=== PATIENT | male | born 1950 | race Caucasian/White ===

== ENCOUNTER → 2020-05-17 12:18 | Outpatient (CLI) | payer MEDICARE, OTHER, SELFPAY ==
--- NOTE | 2020-05-17 | DI.MRI.S_ITS ---
PROCEDURE: MR KNEE RT WO CON INDICATIONS: PAIN IN RIGHT KNEE TECHNIQUE: Noncontrast sagittal PD fast spin echo and T2 fast spin echo with fat saturation, sagittal 3-D FLASH with fat saturation; coronal T1 spin echo and PD fast spin echo with fat saturation, and axial PD fast spin echo with fat saturation through the knee. COMPARISON: None. FINDINGS: Image quality: Excellent. Menisci: Amorphous and linear oblique high T2 signal intensity traverses the anterior horn, body, and posterior horn medial meniscus, demonstrating inferior articular surface extension. There is detachment of the posterior horn lateral meniscus. Linear oblique and amorphous high signal intensity within the anterior horn, body, and posterior horn lateral meniscus is present, demonstrating inferior and superior articular surface extension, indicating complex tearing. Cruciate ligaments: The anterior and posterior cruciate ligaments appear intact. Medial structures: The medial collateral ligament appears intact. Visualized portions of the pes anserinus tendons appear normal. Small amount of medial bursal fluid. Lateral structures: The lateral collateral ligament demonstrates mild T2 signal elevation at the femoral origin. The long and short heads of the biceps femoris tendon appear intact. The popliteus tendon appears normal. Iliotibial band appears normal. Anterior structures: The quadriceps and patellar tendons appear intact. Patellar alignment is normal. No femoral trochlear dysplasia or ventral trochlear prominence. No edema in the infrapatellar fat pad. Bones and cartilage: No bone marrow contusions or fractures. There is mild ill-defined STIR signal elevation within the posterior nonweightbearing aspect of the lateral femoral condyle and within the anterior weight-bearing aspect of the lateral tibial plateau. Severe articular cartilage loss diffusely overlies the weight-bearing aspects of the medial and lateral compartments. Articular cartilage fibrillation overlies the lateral patellar facet. Joint space: There is a small knee joint effusion and a moderate Byers's cyst. Normal appearing synovial plicae are incidentally noted. IMPRESSION: 1. Tricompartmental osteoarthritis with associated articular cartilage loss. 2. Complex tearing of the medial and lateral menisci. 3. Partial-thickness tearing of the lateral collateral ligament. 4. Knee joint effusion and Byers's cyst. 5. Medial bursitis. Dictated by: Lon Cabrera M.D. on 05/17/2020 at 15:00 Approved by: Lon Cabrera M.D. on 05/17/2020 at 15:05
--- NOTE | 2020-05-17 12:20 | DI.MRI.S_ITS ---
PROCEDURE: MR LUMBAR SPINE WO CON INDICATIONS: LE paresthesias TECHNIQUE: Noncontrast sagittal T1 spin echo and T2 fast echo, sagittal STIR, axial T1 and T2 fast spin echo through the lumbar spine. In cases with scoliosis, additional coronal T2 fast spin echo may be performed. COMPARISON: [facility], RG, XR L-SPINE 2-3V, 01/15/2018, 15:12. FINDINGS: Image quality: Excellent. Alignment and Curvature: S-shaped scoliotic curvature is seen. There is minimal retrolisthesis seen at L2-3. Bone Marrow: Marrow is of normal overall signal. No acute vertebral body compression fractures. Spinal Cord: Conus medullaris terminates at the T12-L1 level. Visualized cord demonstrates normal signal and size. Paraspinous Soft Tissues: No paravertebral masses. T12-L1: The disc height and disk signal are well-preserved. Mild disc bulge is seen, which is eccentric to the right. Bridging endplate osteophytes are seen. No significant neural foraminal or central canal narrowing can be seen. L1-L2: The disc height and disk signal are well-preserved. Bridging endplate osteophytes are seen. Moderate right-sided and [id number] left-sided facet hypertrophy is seen. Minimal to mild bilateral neural foraminal narrowing is seen. Mild central canal narrowing is seen. L2-L3: Mild loss of disc height is seen. Loss of disc signal is seen. At least moderate disc bulge is seen. Bridging endplate osteophytes are seen. Moderate facet joint hypertrophy is seen. At least moderate bilateral neural foraminal narrowing is seen. There is a degree of compression seen upon the exiting nerve roots. Moderate to severe central canal narrowing is seen, as on series 6, image 15. L3-L4: The disc height is well-preserved. Loss of disc signal is seen at this level. At least moderate disc osteophyte complex is seen. Moderate facet joint hypertrophy is seen. Associated hypertrophy of the ligamentum flavum can be seen. Moderate to severe bilateral neural foraminal narrowing is seen, right worse than left. There is a degree of compression seen upon the exiting nerve roots. Moderate to severe central canal narrowing is seen, as on series 6, image 21. L4-L5: The disc height is well-preserved. Loss of disc signal is seen at this level. Moderate generalized disc bulge is seen. There is a central disc protrusion. Moderate to prominent facet hypertrophy is seen, right worse than left. There is moderate to severe bilateral neural foraminal narrowing seen. There is a degree of compression seen upon the exiting nerve roots. Severe central canal narrowing is seen, as on series 6, image 26. L5-S1: The disc height and disc signal are relatively well preserved. Mild to moderate disc bulge is seen, which is eccentric to the left. There is a small left lateral recess disc extrusion, with superior migration of the disc material, as on series 6, image 31 and on series 4, image 12. Moderate facet joint hypertrophy is seen. There is moderate to severe bilateral neural foraminal narrowing seen. There is a degree of compression seen upon the exiting nerve roots. Mild central canal narrowing is seen. IMPRESSION: Multiple levels of lumbar spine degenerative change are seen. Multiple levels of exiting nerve root compression can be seen involving the L2, L3, L4, and L5 nerve roots. Moderate to severe central canal narrowing is seen at L2-3 and L3-4 and there is severe central canal narrowing seen at L4-5. Dictated by: Josafat Arzate M.D. on 05/17/2020 at 14:12 Approved by: Josafat Arzate M.D. on 05/17/2020 at 14:16
== END ==
PROVIDERS: PCP Internal Medicine; Referring Provider Physical Medicine & Rehabilitation; Visit Provider Physical Medicine & Rehabilitation
DX: M47.26 Other spondylosis with radiculopathy, lumbar region (principal); M47.27 Other spondylosis with radiculopathy, lumbosacral region; M25.561 Pain in right knee; M17.11 Unilateral primary osteoarthritis, right knee; S83.231A Complex tear of medial meniscus, current injury, right knee, initial encounter; S83.271A Complex tear of lateral meniscus, current injury, right knee, initial encounter; S83.421A Sprain of lateral collateral ligament of right knee, initial encounter; M71.21 Synovial cyst of popliteal space [Baker], right knee; M25.461 Effusion, right knee; M71.561 Other bursitis, not elsewhere classified, right knee; R20.2 Paresthesia of skin
CPT/HCPCS: 72148; 73721

== ENCOUNTER → 2020-07-26 13:15 | Outpatient (CLI) | payer MEDICARE, OTHER, SELFPAY ==
--- NOTE | 2020-07-26 13:16 | DI.RAD.S_ITS ---
PROCEDURE: XR LUMBAR SPINE MIN 4V INDICATIONS: progressive LBP TECHNIQUE: 5 views of the lumbar spine were acquired. COMPARISON: [facility], MR, MR LUMBAR SPINE WO CON, 05/17/2020, 12:52. [facility], X-ray Lumbar Spine, 01/15/3018. FINDINGS: Bones: 5 nonrib-bearing vertebrae are present. There is normal bony alignment. No vertebral body compression fractures. No suspicious bony lesions. There is [id number] degenerative disc disease throughout the lumbar spine. Moderate to severe facet arthropathy at L2-L3, L3-L4, L4-L5 and L5-S1. Soft tissues: Overlying bowel gas pattern is normal. No suspicious soft tissue calcifications. Oblique images: No pars defects. IMPRESSION: Degenerative disc and facet disease in lumbar spine as described. Dictated by: Lanre Leahy M.D. on 07/26/2020 at 15:26 Approved by: Lanre Leahy M.D. on 07/26/2020 at 15:30
== END ==
PROVIDERS: PCP Internal Medicine; Referring Provider Internal Medicine; Visit Provider Physical Medicine & Rehabilitation
DX: M51.16 Intervertebral disc disorders with radiculopathy, lumbar region (principal); M47.26 Other spondylosis with radiculopathy, lumbar region; M47.27 Other spondylosis with radiculopathy, lumbosacral region; M17.11 Unilateral primary osteoarthritis, right knee; G62.2 Polyneuropathy due to other toxic agents; R26.81 Unsteadiness on feet
CPT/HCPCS: 72110; 99214

== ENCOUNTER → 2020-08-28 13:19 | Outpatient (CLI) | payer MEDICARE, OTHER, SELFPAY ==
[2020-08-28 14:05] LABS: COVID19 -Nasal RAPID Negative (Negative)
== END ==
PROVIDERS: PCP Internal Medicine; Visit Provider Physician Assistant
DX: Z11.59 Encounter for screening for other viral diseases (principal)
CPT/HCPCS: 87635

== ENCOUNTER 2020-08-31 12:22 | Outpatient (CLI) | payer MEDICARE, OTHER, SELFPAY ==
[2020-08-31] VITALS (9 sets, daily range): BP systolic 111–155; BP diastolic 56–72; PULSE 52–65; RESP 10–17; TEMP 36.1; O2SAT 95–100
--- NOTE | 2020-08-31 12:30 | DI.RAD.S_ITS ---
PROCEDURE: PAIN L INTERLAMINAR/CAUDAL INJ INDICATIONS: SPONDYLOSIS COMPARISON: [facility], CR, XR LUMBAR SPINE MIN 4V, 07/26/2020, 13:17. FINDINGS: Fluoroscopic spot filming was performed to verify placement of a spinal needle at the L4-L5 level, as labeled on the films. Appropriate location of the needle tip was confirmed by injection of iodinated contrast. IMPRESSION: Intraprocedural examination within normal limits. Dictated by: Josafat Arzate M.D. on 08/31/2020 at 12:44 Approved by: Josafat Arzate M.D. on 08/31/2020 at 12:45
[2020-08-31] MEDS: fentaNYL 100 MCG/2 ML INJ 50 MCG IV (13:08)
[2020-08-31] MEDS: MIDAZOLAM 5 MG/5 ML VIAL IV (13:08)
[2020-08-31] MEDS: BUPIVACAINE 0.25% (PF) VIAL 2 ML INJ (13:13)
[2020-08-31] MEDS: IOPAMIDOL 15 ML VIAL 3 ML INJ (13:13)
[2020-08-31] MEDS: BETAMETHASONE 30 MG/5 ML MDV 6 MG INJ (13:14)
[2020-08-31] MEDS: DEXAMETHASONE 10 MG/ML VIAL 20 MG INJ (13:14)
--- NOTE | 2020-08-31 13:19 | P.PCN_ITS ---
Date/Time/Diagnoses Date of procedure: 08/31/20 Time of procedure: 13:19 Pre-procedure diagnosis: 1. HNP WITH RADICULAR FEATURES, 2. MULTILEVEL CENTRAL STENOSIS, Post-procedure diagnosis: same Procedure Notes Procedure: 1. FLUOROSCOPICALLY GUIDED CONTRAST CONTROLLED INTERLAMINAR EPIDURAL STEROID INJECTION -L4/5 Indications: Robbin is referred by Dr. Paul for treatment of Bilateral Foraminal Stenosis R>L LE symptoms. Physician: Magdy Long Total Fluoroscopy time (seconds): 6 Total sedation minutes: 8 Complications: none Procedure in detail & Post-procedure care: FINDINGS Multilevel Central Spinal Stenosis with Nerve Root Compression DESCRIPTION OF PROCEDURE Fluoroscopically guided, contrast-controlled L4/5 translaminar epidural steroid injection. Following review of allergy and review of potential side effects and complications, including, but not necessarily limited to, infection, allergic reaction, local tissue breakdown, temporary as well as permanent nerve injury, paralysis, stroke and possible , the patient indicated that the patient understood and agreed to proceed. An informed consent document was signed by the patient, witnessed by a nurse, and placed in the patient's chart. Additionally, other treatment options including modalities, medications, and physical therapy were reviewed with the patient. After review of previous anaesthesic history and IV conscious sedation the patient was deemed safe to proceed with today?s procedure with IV conscious sedation as ASA class II designation. Safety time-out was performed to confirm patient ID, procedure to be performed and site of procedure. IV sedation was accomplished with a combination of 2mg of Versed and 50mcg of Fentanyl was administered by the RN after DO order, titrated to patient comfort during the course of the procedure while the patient remained responsive to all verbal commands In the prone position, following sterile prep and drape of the lumbar region, the L4/5 translaminar space was identified fluoroscopically. The skin was anesthetized via a 25-gauge, 1.5inch needle with 1% lidocaine solution. At this point, a 22-gauge short bevel spinal needle was atraumatically introduced and advanced under fluoroscopic guidance into the region of the L4/5 translaminar space. Depth was confirmed on lateral view. Radiological data, including multiple fluoroscopic views of the lumbar spine, reveal a spinal needle at the L4/5 translaminar space. Lateral views then show placement of the needle in the epidural space. Subsequent views show contrast material flowing superiorly and inferiorly in the epidural space. No vascular or intrathecal uptake is observed. At this point, using loss of resistance technique with saline and air, the epidural space was entered. This was confirmed following negative aspiration with injection of approximately 1.5cc of Isovue 200, showing excellent epidural flow without vascular or intrathecal uptake. At this point, 1cc of 1% lidocaine solution combined with 3cc or 20mg of dexamethasone and 6mg betamethasone was injected without incident. The patient tolerated the procedure well without signs or symptoms of complica tions prior to transfer to the recovery area continued monitoring without incident. The patient was then transferred to the recovery area where they were observed for an appropriate period of time after the injection. The patient reported a VAS score of 6 prior to the procedure and a post- procedure VAS of 0. POST OP INSTRUCTIONS The patient was provided a Pain Log to continue to record their response to the target-specific procedure prior to follow-up visit with their referring physician. Additionally, specific post-injection care instructions and a contact number to our office were provided if concerns arise regarding possible complications associated with the procedure are suspected.
== END 2020-08-31 13:45 | disposition home or self-care (01) ==
LOC: RAD 12:29
PROVIDERS: PCP Internal Medicine; Referring Provider Physical Medicine & Rehabilitation; Visit Provider Physical Medicine & Rehabilitation
DX: M54.16 Radiculopathy, lumbar region (principal); R26.81 Unsteadiness on feet; G62.2 Polyneuropathy due to other toxic agents; M48.061 Spinal stenosis, lumbar region without neurogenic claudication
CPT/HCPCS: 62323; J0702; J1100; J2250; J3010

== ENCOUNTER → 2020-11-30 12:37 | Outpatient (CLI) | payer MEDICARE, OTHER, SELFPAY ==
[2020-11-30 14:54] LABS: COVID19 -Nasal RAPID Negative (Negative)
== END ==
PROVIDERS: PCP Internal Medicine; Visit Provider Physical Medicine & Rehabilitation
DX: Z20.822 Contact with and (suspected) exposure to COVID-19 (principal)
CPT/HCPCS: 87635; C9803

== ENCOUNTER 2020-12-02 13:04 | Outpatient (CLI) | payer MEDICARE, OTHER, SELFPAY ==
[2020-12-02] VITALS (8 sets, daily range): BP systolic 97–141; BP diastolic 52–93; PULSE 55–66; RESP 12–18; TEMP 36.3; O2SAT 93–99
--- NOTE | 2020-12-02 13:06 | DI.RAD.S_ITS ---
PROCEDURE: PAIN L/S TRANSFORAMINAL INJECT INDICATIONS: SPONDYLOSIS COMPARISON: [facility], XA, PAIN L INTERLAMINAR/CAUDAL INJ, 08/31/2020, 13:10. [facility], CR, XR LUMBAR SPINE MIN 4V, 07/26/2020, 13:17. [facility], RG, XR L-SPINE 2-3V, 01/15/2018, 15:12. FINDINGS: Fluoroscopic spot filming was performed to verify placement of a spinal needle at the L4-L5 level, as labeled on the films. Appropriate location of the needle tip was confirmed by injection of iodinated contrast. IMPRESSION: Intraprocedural examination within normal limits. Dictated by: Josafat Arzate M.D. on 12/03/2020 at 10:11 Approved by: Josafat Arzate M.D. on 12/03/2020 at 10:12
[2020-12-02] MEDS: MIDAZOLAM 5 MG/5 ML VIAL IV (13:50)
[2020-12-02] MEDS: fentaNYL 100 MCG/2 ML INJ 50 MCG IV (13:50)
[2020-12-02] MEDS: BUPIVACAINE 0.25% (PF) VIAL 2 ML INJ (13:55)
[2020-12-02] MEDS: IOPAMIDOL 15 ML VIAL 3 ML INJ (13:55)
[2020-12-02] MEDS: DEXAMETHASONE 10 MG/ML VIAL 20 MG INJ (13:55)
[2020-12-02] MEDS: BETAMETHASONE 30 MG/5 ML MDV 6 MG INJ (13:55)
--- NOTE | 2020-12-09 16:15 | P.PCN_ITS ---
Date/Time/Diagnoses Date of procedure: 12/02/20 Time of procedure: 16:16 Pre-procedure diagnosis: 1. FORAMINAL STENOSIS WITH LE SYMPTOMS Post-procedure diagnosis: same Procedure Notes Procedure: 1. FLUOROSCOPICALLY GUIDED CONTRAST CONTROLLED TRANSFORAMINAL EPIDURAL STEROID INJECTION - LEFT L4/5 Indications: Robbin is referred by Dr. Paul for treatment of Foraminal Stenosis with Left LE Symptoms Physician: Magdy Long Total Fluoroscopy time (seconds): 12 Total sedation minutes: 14 Complications: none Procedure in detail & Post-procedure care: FINDINGS Foraminal Nerve Root Compression secondary to disc disease and facet hypertrophy DESCRIPTION OF PROCEDURE Following review of allergy and review of potential side effects and complications, including, but not necessarily limited to, infection, allergic reaction, local tissue breakdown, stroke, temporary or permanent nerve injury, paralysis, and possible , the patient indicated that the patient understood and agreed to proceed. An informed consent document was signed by the patient, witnessed by a nurse, and placed in the patient's chart. Additionally, other treatment options including medications, modalities, and physical therapy were reviewed with the patient. After review of previous anaesthesic history and IV conscious sedation the patient was deemed safe to proceed with today?s procedure with IV conscious sedation as ASA class II designation. Safety time-out was performed to confirm patient ID, procedure to be performed and site of procedure. IV sedation was accomplished with a combination of 2mg of Versed and 50mcg of Fentanyl administered by the RN after DO order, titrated to patient comfort during the course of the procedure while the patient remained responsive to all verbal commands In the prone position following sterile prep and drape of the lumbar region, the left L4/5 posterior neuroforamen was identified fluoroscopically. The skin was anesthetized via a 25-gauge 1.5-inch needle with 1% lidocaine solution. At this point, a 25-gauge 3.5-inch spinal needle was atraumatically introduced and advanced under fluoroscopic guidance through the posterior left L4/5 neuroforamen to approximately the anterior aspect of the canal. Depth was confirmed on lateral view. Following negative aspiration, injection of approximately 1.5 cc of Isovue 200 under live fluoroscopy in the AP view confirmed excellent flow along the nerve root, into the epidural space without vascular or intrathecal uptake observed Radiological data, including multiple fluoroscopic views of the lumbosacral spine, reveal a spinal needle at the left L4/5 posterior neuroforamen. Subsequent views show flow of contrast material flowing superiorly and inferiorly along the nerve root confirming epidural flow. Subsequently, a test dose of 1.5 cc of 1% lidocaine solution was administered and patient was observed for two minutes for signs or symptoms of complications, including abdominal pain, shortness of breath, bilateral upper or lower extremity weakness, nausea and vomiting, prior to steroid injection. At this point, a total of 3cc or 20mg of dexamethasone and 6mg of betamethasone was injected without incident. The procedure tolerated the procedure well without signs or symptoms of complications prior to transfer to the recovery area continued monitoring without incident. The patient was then transferred to the recovery area where they were observed for an appropriate time after the injection. The patient reported a VAS score of 7 prior to the procedure and a post- procedure VAS of 0. POST OP INSTRUCTIONS The patient was provided a Pain Log to continue to record their response to the target-specific procedure prior to follow-up visit with their referring physician. Additionally, specific post-injection care instructions and a contact number to our office were provided if concerns arise regarding possible complications associated with the procedure are suspected.
== END 2020-12-02 14:26 | disposition home or self-care (01) ==
LOC: RAD 13:06
PROVIDERS: PCP Internal Medicine; Referring Provider Internal Medicine; Visit Provider Physical Medicine & Rehabilitation
DX: M48.061 Spinal stenosis, lumbar region without neurogenic claudication (principal); M51.16 Intervertebral disc disorders with radiculopathy, lumbar region
CPT/HCPCS: 64483; 99152; J0702; J1100; J2250; J3010

== ENCOUNTER → 2022-01-23 12:56 | Outpatient (CLI) | payer MEDICARE, OTHER, SELFPAY ==
[2022-01-23 15:01] LABS: COVID19 -Nasal RAPID Negative (Negative)
== END ==
PROVIDERS: PCP Internal Medicine; Referring Provider Family Medicine Sleep Medicine; Visit Provider Family Medicine Sleep Medicine
DX: Z20.822 Contact with and (suspected) exposure to COVID-19 (principal)
CPT/HCPCS: 87635; C9803

== ENCOUNTER 2022-01-25 10:31 | Day surgery (SDC) | payer MEDICARE, OTHER, SELFPAY ==
[2022-01-24 12:36] VITALS: BMI 31.8
[2022-01-25] VITALS (14 sets, daily range): BP systolic 98–179; BP diastolic 35–78; PULSE 53–70; RESP 12–20; TEMP 36.1–36.6; O2SAT 93–100; BMI 31.8; BMI 32.5
--- NOTE | 2022-01-25 07:31 | DI.RAD.S_ITS ---
PROCEDURE: XR KNEE RT 1TO2V INDICATIONS: prosthesis placement TECHNIQUE: 2 view(s) of the knee acquired. COMPARISON: None. FINDINGS: Bones: Patient is status post knee joint arthroplasty. Hardware components are in expected positions. Visualized bony structures are intact. Soft tissues: Overlying postoperative changes are noted. IMPRESSION: Expected appearance of right knee arthroplasty. Dictated by: Lon Cabrera M.D. on 01/25/2022 at 15:49 Approved by: Lon Cabrera M.D. on 01/25/2022 at 15:50
[2022-01-25] MEDS: LACTATED RINGERS 1,000 ML 84 ML IV (10:58)
[2022-01-25] MEDS: PREGABALIN 75 MG CAPSULE PO (11:06)
[2022-01-25] MEDS: ACETAMINOPHEN 325 MG TABLET 975 MG PO (11:06)
[2022-01-25] MEDS: CELECOXIB 200 MG CAPSULE PO (11:06)
--- NOTE | 2022-01-25 12:43 | PM.PREOP ---
Pre-operative Note COVID-19 COVID-19 status: Negative Result date/Date tested (Pos, Neg/Pending): 01/23/22 Interval Note History & Physical reviewed/Exam performed by Physician: Yes Changes to H&P: No
[2022-01-25] MEDS: CEFAZOLIN 2 GM/20 ML SYRINGE IV (13:40)
[2022-01-25] MEDS: TRANEXAMIC ACID 1,000 MG VIAL 1000 MG INJ ×2 (13:49→14:50)
--- NOTE | 2022-01-25 14:10 | SUR.OPER ---
Supine on padded OR bed. Pillow under head, arms secured on padded armboards <90 degree abduction. Safety belt across torso. Non-operative leg secured with tape over blanket over lower leg. Operative leg secured in [employer] positioner. Foam padded brace at thigh of operative leg.
[2022-01-25] MEDS: MORPHINE 4 MG/ML INJ INJ (14:26)
[2022-01-25] MEDS: BUPIVACAINE 0.25% (PF) 60 ML, EPINEPHrine 0.3 MG INJ (14:26)
[2022-01-25] MEDS: BUPIVACAINE LIPOSOME 266 MG/20 ML VIAL INJ (14:26)
--- NOTE | 2022-01-25 15:23 | P.OP_ITS ---
Operative Date/Time/Diagnoses Date of procedure: 01/25/22 Time of procedure: 15:23 Pre-op diagnosis: Right knee osteoarthritis Post-op diagnosis: same Procedure & Clinicians Procedure: Right total knee replacement Same procedure as scheduled: Yes Indications: The patient has had progressively worsening right knee pain with radiographic changes consistent with arthritis. Non-operative management has failed and the patient has requested total knee replacement. The risks, benefits and alternatives to surgery were discussed with the patient prior to proceeding. Risks discussed included, but were not limited to, failure to relieve pain, stiffness, infection, nerve damage, deep venous thrombosis, pulmonary embolism, stroke, coma, heart attack, permanent paralysis and , as well as the potential need for eventual revision of the prosthetic. Surgeon: Chaparro Mclaughlin Heating Element Repairer: Tavares Rocha Click Yes if Unassisted: No Anesthesia Type: General, Spinal and Local Operative Notes Findings: Severe lateral and moderate patellofemoral osteoarthritis with relative preservation of the medial compartment. Closure Type: primary Specimen(s): none sent Prosthetic devices, grafts, tissues, transplants, or devices: Implants used in this procedure were manufactured by the [employer] and [employer] and included the BCS II Journey total knee replacement with a size 7 right cobalt chromium femoral component, a size 6 right non porous tibial base plate, a 9 mm cross-linked polyethylene insert and a 35 mm oval Cassi II patella. Applied: implant(s) Estimated Blood Loss (mL): 50 Blood products transfused: none Tourniquet time (min): 51 Procedure in detail: The patient was seen in the pre-operative area, where the patient identified the right knee as the operative site and this was marked with my initials. The patient received pre-operative antibiotics, and was taken to the operating room and placed on the operative table in the supine position. After satisfactory anesthesia, a multimedia engineer out was performed. The right leg was encircled with a tourniquet about the proximal thigh, and the leg was prepared from the toes to the tourniquet with ChloroPrep in the usual fashion and draped through sterile drapes. The leg was elevated and exsanguinated with Eschmark bandage and the tourniquet inflated to 250 mmHg pressure. The knee was approached through an approximately 18 cm incision centered over the patella and carried into the knee through a medial parapatellar arthrotomy. The anterior osteophytes and soft tissues were removed. The rotational landmarks of Priyank's line and the transepicondylar axis were marked on the femur with electrocautery, and intramedullary guide holes for the femur and tibia were cr eated. The distal femoral cut was made in 6 degrees of valgus using the intramedullary guide at the primary cut setting. The proximal tibial cut was then made using the intramedullary guide, taking 7 mm of bone off the less involved medial side. The extension gap was checked and the rotation of the femoral component confirmed with the gap balancing system. The anterior, posterior and chamfer cuts were then made. The posterior osteophytes and soft tissues were then removed. The posterior capsule was injected with part of a mixture of 60 ml 0.25% Marcaine mixed with 20 ml Exparel and 4 mg of morphine for post-operative pain control. The remainder of this mixture was injected into the capsule and subcutaneous tissues during cement curing. The tibia was prepared with the rotation set by an extra medullary guide. Trial tibial and femoral components were then placed and the intercondylar notch cut through the femoral trial. Range of motion was 0-135 degrees, with good stability throughout the range. The patella was then cut to accommodate the patellar prosthetic. There was no need for a lateral release. The trials were then removed, and the femoral hole plugged with a bone plug. The bone was prepared with pulsatile lavage, and dried with a sponge. Cement was applied and the final prosthetics placed. Excess cement was removed during and after cement curing. After confirming there was no extruded cement posteriorly, the final tibial insert was placed. The knee was copiously irrigated and the tourniquet deflated. Hemostasis was obtained. The capsule was closed with interrupted # 2 polyester suture. The subcutaneous layer was closed with 3-0 Vicryl, and the skin with a running 3-0 V-Lock suture and Dermabond. An Aquacel Ag dressing was applied and the patient was taken to recovery having tolerated the procedure well. Complications: none Post-operative Condition: stable Disposition: PACU Plan for aftercare: The patient will be maintained on a standard total knee replacement protocol with weight bearing as tolerated. The patient will receive aspirin and sequential compression devices for DVT prophylaxis. The patient will be discharged home when safe for the home environment.
[2022-01-25] MEDS: TAMSULOSIN 0.4 MG CAPSULE PO (17:40)
[2022-01-25] MEDS: IBUPROFEN 400 MG TABLET PO ×2 (17:40→20:51)
[2022-01-25] MEDS: LACTATED RINGERS 1,000 ML 100 ML IV (17:43)
--- NOTE | 2022-01-25 18:13 | PC.NURSE ---
Pt arrived @ 1615 A/O, denies discomfort. Omega/aquacell dsg CDI. IVF LR @ 100cc/hr infusing via pump into LFA w/o incidence. Left leg SCD in place. Call light w/in reach, bed alarm on for pt safety. Satisfactory post op course. Continue w/plan of care.
[2022-01-25] MEDS: ASCORBIC ACID 500 MG TABLET 1000 MG PO (20:50)
[2022-01-25] MEDS: ASPIRIN EC 81 MG TABLET PO (20:50)
[2022-01-25] MEDS: GABAPENTIN 400 MG CAPSULE 1200 MG PO (20:50)
[2022-01-25] MEDS: ACETAMINOPHEN 325 MG TABLET 650 MG PO (20:51)
[2022-01-25] MEDS: METFORMIN HCL 500 MG TABLET 1000 MG PO (20:51)
[2022-01-25] MEDS: DOCUSATE 100 MG CAPSULE PO (20:51)
[2022-01-26 04:00] VITALS: BP 117/60; PULSE 67; RESP 18; TEMP 36.6; O2SAT 98
[2022-01-26 04:40] LABS: Hematocrit 28.6 % (41-53); Hemoglobin 9.5 g/dL (13.5-17.5)
--- NOTE | 2022-01-26 07:41 | PM.DS.1 ---
History of Present Illness History of Present Illness Date Patient Seen: 01/26/22 Time Patient Seen: 07:41 Chief complaint: OPB Narrative: The history and physical is provided in the chart complete his sleep completed note. Please refer to that note for this information. Discharge Providers Provider Date of admission: January 25, 2022 Discharge Date: 01/26/22 Primary care physician: Yaima Paul MD Consults: 01/25/22 15:54 Consult to Discharge Planning Routine Comment: Consult to Physical Therapy Evaluate & Treat Comment: Physician Instructions: postop TKA protocol Discharge provider: Chaparro Mclaughlin MD Summary Hospital Course Discharge Diagnosis: 1. Right knee osteoarthritis 2. Post hemorrhagic anemia Hospital Course: The patient was admitted to the hospital and taken directly to the operating room on January 25, 2022 where he underwent a right total knee replacement without difficulty. He was stable on postoperative day 1 with a moderate post hemorrhagic anemia. At the time of this dictation the plan is for discharge later today. Status at Discharge Cognitive/behavioral status at discharge: at baseline, oriented Functional status at discharge: uses cane/walker Overall status at discharge: patient is progressing back to baseline Time Spent with Patient Time spent: Less than 30 minutes Exam Vital Signs (past 8 hours): - 01/26/22 04:00 Temperature 97.9 F Pulse Rate 67 Respiratory Rate 18 Blood Pressure 117/60 Pulse Oximetry 98 Oxygen Delivery Method Room Air Oxygen Flow Rate 0 Narrative Exam Narrative: Right knee wound is dressed with no drainage on the bandage. Calf is soft. Light touch and motion are intact in the right lower extremity. 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 Pressure ulcer (~12/2021) PTSD (post-traumatic stress disorder) Right knee DJD Sleep apnea Ulcer (~1969) Surgical History (Updated 01/24/22 @ 13:14 by Rosalva Allen RN) History of appendectomy Hx of bilateral cataract extraction (~2019) Hx of hernia repair (~1988) Family History Father Diabetes mellitus Cancer Mother Cancer Sister Cancer Sister Cancer Family/Other Diabetes mellitus Social History (Updated 11/14/19 @ 10:19 by Aziza Ambriz) marital status: household members: spouse Smoking Status: Never smoker alcohol intake: current Discharge Assessment & Plan Assessment and Plan Assessment: Stable postoperative day 1 status post right total knee replacement with moderate post hemorrhagic anemia. This is not severe enough that it will require transfusion and should resolve spontaneously with appropriate dietary measures. Plan of Treatment: Discharge today with follow-up in 2 weeks in my office. Discharge prescriptions have been sent to the [facility] for [place]. In addition suggestions have been made for the use of Tylenol or ibuprofen for pain relief and the use of low-dose aspirin for DVT prophylaxis. Discharge Plan Discharge Plan Patient Disposition: Home Discharge orders & Medications Discharge Orders: Discharge (Order); Ordered 01/26/22 Ordered By: Chaparro Mclaughlin Prescriptions: New acetaminophen 325 mg Tablet 650 mg PO TID 30 Days Qty: 180 0RF hydrocodone-acetaminophen 5-325 mg Tablet 1 tab PO Q4HR PRN (Reason: Pain, Moderate (4-6)) Qty: 40 0RF aspirin 81 mg Tablet,Delayed Release (Dr/Ec) 81 mg PO BID 42 Days Qty: 84 0RF ibuprofen 400 mg Tablet 400 mg PO Q4HR 30 Days 0RF Continued atorvastatin [Lipitor] 40 MG tablet 40 mg PO DAILY Qty: 0 0RF tamsulosin [Flomax] 0.4 MG capsule,extended release 24hr 0.4 mg PO HS Qty: 0 0RF omega 6-hzz-dau-fish oil [Fish Oil] 1,000 mg (120 mg-180 mg) Capsule 1 cap PO DAILY Qty: 0 0RF calcium carbonate 500 mg calcium (1,250 mg) Tablet,Chewable 1,000 mg PO DAILY PRN (Reason: GI Upset) Qty: 0 0RF cholecalciferol (vitamin D3) [Vitamin D3] 50 mcg (2,000 unit) Capsule 1,000 unit PO QDAY Qty: 0 0RF metoprolol succinate 100 mg Tablet Extended Release 24 Hr 100 mg PO DAILY 0RF Advil PM 200-38 mg Tablet 1 - 2 cap PO BEDTIME PRN (Reason: Sleep) 0RF finasteride 5 mg tablet 5 mg PO DAILY 0RF allopurinol 300 mg tablet 300 mg PO DAILY 0RF metformin 1,000 mg tablet 1,000 mg PO BID 0RF lactobacillus combination no.8 1 tab PO DAILY 0RF lisinopril 5 mg tablet 5 mg PO DAILY 0RF ascorbic acid (vitamin C) 1,000 mg tablet 1 gram PO BID 0RF duloxetine [Cymbalta] 60 mg capsule,delayed release(DR/EC) 60 mg PO DAILY Qty: 90 2RF trazodone 100 mg tablet 100 mg PO BEDTIME PRN (Reason: insomnia) Qty: 90 2RF gabapentin 800 mg tablet 1,200 mg PO TID Qty: 270 2RF Discontinued aspirin 81 MG tablet,delayed release (DR/EC) 81 mg PO DAILY Qty: 0 0RF Follow up/Referrals: Yaima Paul MD [Primary Care Provider] - Chaparro Mclaughlin MD [Physician] - 2 Weeks Diet/Activity/Treatments Diet: Diet as Tolerated and Regular Activity: You may bear weight as tolerated on your right leg. Cold/Heat Therapy: You may apply ice for 15 minutes every hour as needed to the right knee for pain control. Skin/Wound/Dressing Care Report to your healthcare provider any signs of infection, such as:: chills, fever, night sweats, increased pain, unusual drainage and unusual redness Dressing: You may remove the Omega wrap 3 days after surgery and shower normally with the deeper dressing in place. Leave the deeper dressing in place until your postoperative follow-up. If the central strip of the deeper dressing becomes saturated with either water or blood, please call the office to have it evaluated. Visit Report/Discharge Packet Instructions: DI for Knee Replacement Stand Alone Forms: Surgery Discharge Discharge Data Primary Care Provider: Yaima Paul Attending Provider: Chaparro Mclaughlin Quality VTE Deep Vein Thrombosis/Pulmonary Embolism Present on Admission: No
[2022-01-26 08:00] VITALS: O2SAT 94
[2022-01-26 08:39] VITALS: BP 129/70; PULSE 65; RESP 18
--- NOTE | 2022-01-26 09:09 | CM.DANOTE ---
DCP: Case received, EMR reviewed and met with patient. Introduced self and role. Was able to obtain information regarding patient's baseline activity status prior to his surgery. DCP assessment completed with information currently available. Patient is a 71 year old male who admitted yesterday morning to the care of the orthopedic team. PCP: Dr. Paul. Payer: confirmd: Medicare/[employer]. Patient came to the hospital via private vehicle for a surgical procedure. Patient had right total knee arthroplasty. Patient has history of osteoarthritis. Met with patient in his room. He was sitting up in bed finishing his breakfast. He is alert and oriented, and resides in [place] with his spouse, Em. He is retired . Confirmed that he is independent at his baseline, and was able to get a walker and cane for home use. He has outpatient P.T. set up, and he mentioned that his first appointment is Sunday. P: Patient has discharge orders for home pending working with P.T. Connie Gaines RN/Mortgage Sales Manager Discharge Planning/Care Management CM Discharge Assessment Start: 01/26/22 09:06 Freq: Status: Active Protocol: Document 01/26/22 09:07 (Rec: 01/26/22 09:08 [id number]) Discharge Planning Assessment Assigned Pharmacy Technician Connie Gaines RN/Mortgage Sales Manager Advance Directives? Yes Advance Directives on File No History Provided By Patient,Medical Record Prior Living Arrangements House Household Members spouse Type of transporation used prior to Drives own vehicle admit Independent with ADL's Yes Is patient alert and oriented? Yes Caregiver for Another No DME Already Rented / Owned FWW / Walker,Cane Patient/Family Preference OP PT Therapy Barriers to Discharge No Comment Spouse should be able to assist patient when he goes home. Discharge Plan Home Transportation Arrangement Spouse Referrals Initiated None needed Whiteboard Updated in Patient Room with Yes name and ext. # of Pharmacy Technician Review Status In Process Next Review Type Continued Stay Review Pre-Anesthesia Assessment Start: 01/24/22 12:36 Freq: Status: Complete Protocol: Document 01/24/22 12:36 CAB (Rec: 01/24/22 13:47 CAB [id number]) Pre-Anesthesia Assessment Patient Information Reviewed Via Phone Assessment Assessment Completed With Patient Diagnostic Results BMP/CMP,CBC,EKG Comment Outside labs/ECG scanned, COVID screen @ 01/23/22 Negative Primary Care Provider Yaima Paul Seen Specialist in Last 12 Months Yes Specialist Seen Orthopedist,Multiple Coil Winder Comment Podiatry clearance in surgery folder for dos Primary Language Malay Accounts Supervisor Required No Height 5 ft 10 in Weight 222 lb Body Mass Index (BMI) 31.8 Hearing Ability Normal Visual Assist Glasses Dentition Type Dental Implants Barriers to Learning None Comment All dental implants Hx Anesthesia Reactions No: IVA-Untreated Hx Family Anesthesia Reaction No Hx Malignant Hyperthermia No Hx Blood Transfusions No Anesthesia Review Requested No alcohol intake current alcohol intake frequency 0-2 drinks per day Smoking Status Never smoker Substance Use Type does not use Pain Present Pain Reported Musculoskeletal Symptoms Abnormal Gait,Difficulty Walking,Joint Pain History of Falling (Recent or History of Yes ) Patient is completely paralyzed or No completely immobile Prosthesis or Orthotic Device Cane,Front Wheel Walker Mental Status Oriented to own ability Is patient on oxygen? No Does patient have DHILLON/SOB Yes: Pt feels r/t loss of exercise, deconditioning Hx Sleep Apnea Yes: Does not wear CPAP CPAP/BIPAP use prescribed not used Currently Taking a Beta Rizwan Yes: Metoprolol Can You Climb a Flight of Stairs Without No SOB Hx Chest Pain No Hx SOB Pt feels r/t loss of exercise, deconditioning Hx Syncope or Dizziness No Anti-Coagulant Therapy No Has a Shower Room Attendant No Cardiac Testing No Hx Pacemaker/ICD No Pacemaker Rep Required? No Cardiac Clearance Received Not Applicable Diet Type At Home Regular dysphagia No Bladder Pattern Nocturia Urinary Catheter Present No Hx Urinary Self Catheterization No Diabetes Yes HgbA1C 5.9 Date 12/07/21 Hx Drug Resistant Organism No Presence of External or Internal Medical No Devices Have you had any close contact with No someone diagnosed with COVID-19? Received a COVID vaccine? Yes: Did not get booster Received all doses? No Marital Status Lives With spouse Prior Living Arrangements House Number of Floors (Floors) One Floor Support System Spouse Does the Patient Have Assistance After Yes Surgery Patient Discharge Plan Description Return Home Comment Pt advised possible same day surgery per surgeon Feels Safe in Current Environment Yes Been Physically Hurt or Threatened By a No Person in Current Environment Do you have thoughts of harming yourself None or others? Are you currently considering suicide? No Do you have a plan to hurt yourself or No Plan others? Do You Have Any Spiritual Beliefs That No May Affect Your HC Choices? Do You Have Any Cultural Practices That No May Affect Your HC Choices? Comment Mc Who Can We Speak to About Patient's Care Family, friends Identifying Code for Release of Patient Declines to issue Information Health Care Proxy/Next of Kin Em () Health Care Proxy Emergency Contact Name Em () Emergency Contact Advance Directives? Yes Advance Directives on File No Requested Patient Bring Advanced Yes Directives DOS Power of Instrumentation Controls Engineer No PAC Instructions Durable medical equipment, Medications to take/avoid, Nasal antibiotic,No ETOH/ petroleum product on skin DOS, NPO,Post-op transportation,Pre -surgical wash,Sensory aids, Sturdy shoes/comfortable clothes,Do not bring valuables and remove jewelry
[2022-01-26 09:21] VITALS: BP 129/70
[2022-01-26] MEDS: lisinopriL 5 MG TABLET PO (09:21)
[2022-01-26] MEDS: GABAPENTIN 400 MG CAPSULE 1200 MG PO (09:21)
[2022-01-26 09:22] VITALS: BP 129/70
[2022-01-26] MEDS: IBUPROFEN 400 MG TABLET PO (09:22)
[2022-01-26] MEDS: FINASTERIDE 5 MG TABLET PO (09:22)
[2022-01-26] MEDS: DOCUSATE 100 MG CAPSULE PO (09:22)
[2022-01-26] MEDS: METOPROLOL ER 50 MG TABLET 100 MG PO (09:22)
[2022-01-26] MEDS: DULOXETINE 30 MG CAPSULE 60 MG PO (09:23)
[2022-01-26] MEDS: HYDROCODONE/ACET 5/325 TABLET 1 TAB PO ×2 (09:23→09:25)
[2022-01-26] MEDS: allopurinoL 300 MG TABLET PO (09:24)
[2022-01-26] MEDS: METFORMIN HCL 500 MG TABLET 1000 MG PO (09:24)
[2022-01-26] MEDS: CALCIUM CARBONATE 500 MG TAB 1000 MG PO (09:24)
[2022-01-26] MEDS: ACETAMINOPHEN 325 MG TABLET 650 MG PO (09:24)
[2022-01-26] MEDS: ATORVASTATIN 20 MG TABLET 40 MG PO (09:24)
[2022-01-26] MEDS: ASCORBIC ACID 500 MG TABLET 1000 MG PO (09:25)
--- NOTE | 2022-01-26 10:01 | PT.IIE ---
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 Pt is an effective verbal communicator. Mobility and Gait Pt states he uses a SPC occasionally for balance. He will use a 4WW if he thinks he will need seated rest breaks. He reports he could walk a maximum of 1/4 mile before surgery. Activities of Daily Living and IADL's Pt is fully independent with all ADL and IADL needs. Social History Household Members spouse Living Arrangements House Number of Floors (Floors) One Floor Number of Stairs To Enter/Railing? 1 ROBE no rail. Pt practiced with FWW prior to surgery. Home Environment Standard Height Toilet,High Toilet,Walk in Shower Home Equipment Four Wheel Walker,Straight Cane,Shower Seat with Backrest ,Hand Held Shower,Grab Bars In Shower Employment Status Retired Additional Social History Comment Pt lives with his , Em, who will be available and able to assist as needed at discharge. M2 PT-IP Current Condition Start: 01/26/22 08:21 Freq: NEEDED Status: Discharge Protocol: Document 01/26/22 10:01 AW (Rec: 01/26/22 13:25 AW [id number]) Physical Therapy Current Condition Current Condition Evaluation Date 01/26/22 Treatment Diagnosis R TKA; difficulty in walking Onset Date 01/25/22 M3 PT-IP Subjective Start: 01/26/22 08:21 Freq: NEEDED Status: Discharge Protocol: Document 01/26/22 10:01 AW (Rec: 01/26/22 13:25 AW [id number]) Subjective Physical Therapy Visit Type Type Initial Evaluation Visit Start Time 09:35 Visit Stop Time 10:01 Total Visit Minutes 26 Physical Therapy Visit Comments Patient Comments Pt is willing to participate with PT Patient Goals Return home today with spouse support Therapy Pain Assessment Pain When Pain Assessed During Mobility Pain Present Pain Present Pain Reported Location R knee Intensity 5 Scale Used Numeric (0 - 10) Pain Management Techniques Apply Cold,Elevation,Timing of Activity with Medications M4 PT-IP Mobility and Gait Start: 01/26/22 08:21 Freq: NEEDED Status: Discharge Protocol: Document 01/26/22 10:01 AW (Rec: 01/26/22 13:25 AW [id number]) PT-Bed Mobility Assessment Supine to Sit Supine to Sit Standby Assistance Scooting Scooting to Edge of Bed Standby Assistance PT-Transfer Assessment Sit to and From Stand Sit to and from Stand Standby Assistance,Use of Upper Extremities Equipment Transfer Assistive Device Gait Belt,Front Wheeled Walker Orthotic/Prosthetic Devices or Brace: No Transfers Transfer Destination Chair Transfer Technique pt ambulated with FWW Transfer Ability Level of Assist Standby Assistance Comments Mobility Comments Pt was lying in bed as PT arrived. With HOB flat, he completed supine to sit SBA and then stood SBA using FWW for steadiness. He was able to shift weight laterally with minimal UE weightbearing. He ambulated in the halls 120' with FWW SBA, completed stair training on platform step, and walked the 120' back to the room SBA. He transferred to the chair with good mechanics. He stood and sat again for practice with no need for cues . Pt was left with call light and tray table in reach. Gait Assessment Gait Gait Assistance Required: Standby Assistance Distance (Feet) 240 Able to Maintain Weight Bearing Status Yes During Gait Assistive Devices Assistive Device Gait Belt,Front Wheeled Walker Orthotic/Prosthetic Devices or Brace: No Gait Deviations General Gait Pattern Antalgic,Decreased Stride Length,Step-to Gait Factors Limiting Gait Function Factors Limiting Gait Function Decreased Strength,Limited Range of Motion,Pain Comments Gait Comments Pt ambulated initially with moderate UE weightbearing. In response to cues, he was able to reduce UE WB and used FWW primarily for balance. Educated pt that 4WW may be enough support for him at home but if he feels unsteady, he should procure a FWW for improved support. Stair Climbing Assessment Evaluation Level of Assist On Stairs Standby Assistance Devices Stair Climbing Assistive Devices Front Wheel Walker Technique/Endurance Stair Climbing Direction Ascend and Descend Stair Climbing Technique Step to Step Number of Steps Climbed 1 Query Text: Stair Climbing Set # Repetitions (reps) 2 Comments Stair Climbing Comments PT educated pt on stair climbing technique and gave min cues for first attempt. On second attempt, pt was able to sequence independently SBA. PT-Balance Assessment Sitting Balance and Reactions Static Sitting Balance Ability Normal Dynamic Sitting Balance Ability Normal Standing Balance and Reactions Static Standing Balance Ability Good Dynamic Standing Balance Ability Good Device Used FWW M5 PT-IP Objective Assessments Start: 01/26/22 08:21 Freq: NEEDED Status: Discharge Protocol: Document 01/26/22 10:01 AW (Rec: 01/26/22 13:25 AW [id number]) Orientation Orientation/Cognition Level of Alertness Alert Orientation Name,Day of Week,Place, Situation Language Function Ability No Deficits Noted Safety Awareness Understands Safety Issues Memory Description No Deficits Noted Gross Range of Motion Lower Extremity ROM Assessment Right Impaired Strength Lower Extremity Strength Assessment Right Impaired Hip 4/5 Knee 4-/5 Comments Strength Comments LLE grossly 4+/5 Sensation Assessment Sensation Gross Sensation Right LE Impaired,Left LE Impaired Comments Sensation Comments Pt endorses mild peripheral neuropathy bilateral feet. Muscle Tone Muscle Tone WNL Yes M6 PT-IP Treatment Start: 01/26/22 08:21 Freq: NEEDED Status: Discharge Protocol: Document 01/26/22 10:01 AW (Rec: 01/26/22 13:25 AW [id number]) Physical Therapy Treatment Exercises Exercises Ankle Pumps,Quad Sets,Heel Slides,Passive Knee Extension Hang,Seated Knee Flexion/ Extension Knee ROM Measurement 0-95 Education Education Provided Weight Bearing Status,Post-Op Packet,Safety Other Treatments Other Treatment Performed Educated pt on importance of ROM focus in early phases of rehab. Counseled pt to acquire FWW if 4WW felt too unstable. M7 PT-IP Assessment and Plan Start: 01/26/22 08:21 Freq: NEEDED Status: Discharge Protocol: Document 01/26/22 10:01 AW (Rec: 04/14/22 13:25 AW [id number]) PT Summary Assessment and Plan Potential Rehabilitation Potential Good Status of Condition at Evaluation Evolving Summary Impairments Pain,ROM,Strength,Balance, Sensation,Transfers,Gait Assessment Summary Robbin is a 71 yo man seen for PT evaluation on POD 1 following R TKA. He is modified independent at baseline using SPC or 4WW outside the home. He required no more than SBA with FWW during this assessment. UE weightbearing was minimal. Pt does not have FWW at home but was deemed safe with 4WW. Pt understands to acquire FWW if 4WW seems unstable. Pt is safe to discharge home with assist . He will need outpatient PT to progress his strength, gait , and balance. Frequency of Treatment Frequency Of Treatment Discharge Weight Bearing Status Weight Bearing Status Weight Bear as Tolerated Allowed Weight Bearing Amount (enter % WBAT RLE or #) (%) Recommendations To Nursing Amount of Assist Needed Standby Assistance Discharge Recommendations PT Discharge Recommendations Home with Assistance, Outpatient PT Transportation Needs at Discharge Private Vehicle
[2022-01-26] MEDS: CHOLECALCIFEROL (VITAMIN D3) 1,000 UNIT TABLET 1000 UNIT PO (10:52)
[2022-01-26] MEDS: ASPIRIN EC 81 MG TABLET PO (10:52)
[2022-01-26 10:54] VITALS: BP 126/62
--- NOTE | 2022-01-26 11:17 | PC.NURSE ---
Addendum entered by Cynthia Cantu R.N. 01/26/22 12:49: Pt transportation here Pt escorted by staff via W/C to waiting vehicle D/C in stable post op course. Original Note: Pt denies discomfort @ this time. Worked w/PT and passed Omega/aquacell dsg right knee CDI Orders for D/C received. Pt sitting in chair. SL D/C intact. Home instructions given w/understanding Awaiting transportation Call light w/in reach.
== END 2022-01-26 12:25 | disposition home or self-care (01) ==
LOC: OR 10:34 → AC 10:35
PROVIDERS: PCP Internal Medicine; Referring Provider Orthopaedic Surgery; Visit Provider Orthopaedic Surgery
PROC: 0SRC0JZ Replacement of Right Knee Joint with Synthetic Substitute, Open Approach (ICD-10-PCS; CPT 27447; principal; 2022-01-25 12:15)
DX: M17.11 Unilateral primary osteoarthritis, right knee (principal); I10 Essential (primary) hypertension; E78.2 Mixed hyperlipidemia; E11.9 Type 2 diabetes mellitus without complications; Z79.84 Long term (current) use of oral hypoglycemic drugs
CPT/HCPCS: 27447; 36415; 73560; 82962; 85014; 85018; 94762; 97116; 97161; C1776; C1713; C9290; J0171; J0690; J2250; J2270; J2274; J2704; J3010

== ENCOUNTER → 2023-10-03 09:25 | Outpatient (CLI) | payer MEDICARE, OTHER, SELFPAY ==
[2022-01-25 15:55] VITALS: BMI 32.5
--- NOTE | 2023-10-03 09:27 | DI.NM.S_ITS ---
PROCEDURE: NM BONE 3 PHASE RADIOPHARMACEUTICAL: 22.0 mCi Tc-99m MDP IV. INDICATIONS: PAINFUL TOTAL KNEE TECHNIQUE: Multiple bone scintigrams were obtained after intravenous injection of Tc-99m MDP, including flow, blood pool, and delayed images centered to the region of interest. COMPARISON: [facility], CR, XR KNEE RT 1TO2V, 01/25/2022, 15:21. [facility], CR, XR KNEE 4+ VIEWS RIGHT, 08/28/2023, 10:21. [facility] [place], CR, XR KNEE 4+ VIEWS RIGHT, 02/27/2022, 15:37. FINDINGS: A triple phase bone scan was obtained, including flow, blood pool and delayed images centered to the knees. Comparison x-ray demonstrate right knee total arthroplasty. On flow and blood pool images, there is minimal increased activity around the right knee prosthesis. Delayed images demonstrate increased activity in right knee at the prosthesis/bone interface, most pronounced in the femorotibial compartment. The scintigraphic findings are suspicious for prosthesis loosening. IMPRESSION: The bone scan findings are suspicious for prosthesis loosening. Dictated by: Lanre Leahy M.D. on 10/03/2023 at 16:12 Approved by: Lanre Leahy M.D. on 10/03/2023 at 16:16
== END ==
PROVIDERS: PCP Internal Medicine; Referring Provider Orthopaedic Surgery Foot and Ankle Surgery; Visit Provider Orthopaedic Surgery Foot and Ankle Surgery
DX: T84.84XA Pain due to internal orthopedic prosthetic devices, implants and grafts, initial encounter (principal)
CPT/HCPCS: 78315; A9503

== ENCOUNTER → 2023-10-12 14:19 | Outpatient (CLI) | payer MEDICARE, OTHER, SELFPAY ==
[2022-01-25 15:55] VITALS: BMI 32.5
[2023-10-12 15:01] LABS: C-Reactive Protein Quant 0.6 mg/dL (<1.0)
[2023-10-12 15:03] LABS: Erythrocyte Sedimentation Rate 6 MM/HR (0-15)
== END ==
PROVIDERS: Referring Provider Orthopaedic Surgery Foot and Ankle Surgery; Visit Provider Orthopaedic Surgery Foot and Ankle Surgery
DX: M25.561 Pain in right knee (principal)
CPT/HCPCS: 85651; 86140

== ENCOUNTER → 2023-10-23 15:07 | Outpatient (CLI) | payer MEDICARE, OTHER, SELFPAY ==
[2022-01-25 15:55] VITALS: BMI 32.5
--- NOTE | 2023-10-23 | DI.MRI.S_ITS ---
PROCEDURE: MR LUMBAR SPINE WO CON INDICATIONS: Spinal stenosis, lumbar region with neurogenic claudication TECHNIQUE: Noncontrast sagittal T1 spin echo and T2 fast echo, sagittal STIR, and T2 fast spin echo through the lumbar spine. In cases with scoliosis, additional coronal T2 fast spin echo may be performed. COMPARISON: [facility], MR, MR LUMBAR SPINE WO CON, 05/17/2020, 12:52. [facility], CR, XR LUMBAR SPINE MIN 4V, 07/26/2020, 13:17. [facility], NM, NM BONE 3 PHASE, 10/03/2023, 9:41. FINDINGS: Image quality: Excellent. Alignment and Curvature: There is normal bony alignment. Bone Marrow: Marrow is of normal overall signal. No acute vertebral body compression fractures. Spinal Cord: Conus medullaris terminates at the L1 level. Visualized cord demonstrates normal signal and size. Paraspinous Soft Tissues: No paravertebral masses. T12-L1: Normal appearance. L1-L2: The disc height and disk signal are well-preserved. Mild to moderate disc bulge is seen. Moderate facet joint hypertrophy is seen. There is mild right-sided and [id number] left-sided neural foraminal narrowing. Mild central canal narrowing is seen. When comparison is made with the prior images, these findings are similar. L2-L3: Mild loss of disc height is seen. Loss of disc signal is seen. Moderate disc bulge is seen, which is eccentric to the right. There is a superimposed central disc protrusion. There is at least moderate bilateral neural foraminal narrowing seen. Moderate to severe central canal narrowing is seen, as on series 6, image 18. These imaging findings have progressed compared to the prior study. L3-L4: The disc height is well-preserved. Loss of disc signal is seen at this level. Moderate disc bulge is seen, with a central disc protrusion. Moderate facet hypertrophy is seen, with associated hypertrophy of the ligamentum flavum. There is moderate to severe bilateral neural foraminal narrowing seen, with an associated a degree of compression seen upon the exiting nerve roots. At least moderate central canal narrowing is seen, as on series 6, image 25. These degenerative changes are mildly worse than in 2020. L4-L5: The disc height is well-preserved. Loss of disc signal is seen at this level. At least moderate disc bulge is seen. There is a superimposed central disc protrusion. Prominent facet hypertrophy is seen. Associated hypertrophy of the ligamentum flavum can be seen. There is moderate to severe bilateral neural foraminal narrowing seen, with an associated a degree of compression seen upon the exiting nerve roots. Severe central canal narrowing is seen, as on series 5, image 11. These degenerative changes are worse than in 2020. L5-S1: The disc height and disk signal are well-preserved. Mild disc bulge is seen, with a central disc protrusion. At least moderate facet hypertrophy is seen, left worse than right. There is moderate to severe bilateral neural foraminal narrowing seen, with an associated a degree of compression seen upon the exiting nerve roots. Mild central canal narrowing is seen. When comparison is made with the prior images, these findings are similar. IMPRESSION: Multiple levels of lumbar spine degenerative change can be seen, which are overall worst at L3-L4 and L4-L5. The degenerative changes have progressed at several levels compared to 2020. Dictated by: Josafat Arzate M.D. on 10/23/2023 at 16:33 Approved by: Josafat Arzate M.D. on 10/23/2023 at 16:38
== END ==
LOC: MRI 15:08
PROVIDERS: Referring Provider Orthopaedic Surgery Foot and Ankle Surgery; Visit Provider Orthopaedic Surgery Foot and Ankle Surgery
DX: M48.062 Spinal stenosis, lumbar region with neurogenic claudication (principal); M47.816 Spondylosis without myelopathy or radiculopathy, lumbar region; M47.817 Spondylosis without myelopathy or radiculopathy, lumbosacral region
CPT/HCPCS: 72148

== ENCOUNTER → 2023-11-20 16:25 | Outpatient (CLI) | payer MEDICARE, OTHER, SELFPAY ==
[2022-01-25 15:55] VITALS: BMI 32.5
[2023-11-20 17:35] LABS: Add Manual Diff / Slide Review NO; Basophils Absolute Auto 0 /uL (0-100); Basophils Percent Auto 0.3 % (0-2); Eosinophils Absolute Auto 700 /uL (0-450); Eosinophils Percent Auto 9.2 % (2-4); Hematocrit 34.5 % (41-53); Hemoglobin 11.7 g/dL (13.5-17.5); Lymphocytes Absolute Auto 1600 /uL (1100-4500); Lymphocytes Percent Auto 19.7 % (25-40); Mean Corpuscular HGB Conc 33.7 % (30-36); Mean Corpuscular Volume 94.9 fL (80-100); Monocytes Absolute Auto 600 /uL (0-900); Neutrophils Absolute Auto 5200 /uL (1500-7000); Neutrophils Percent Auto 63.8 % (50-75); Platelet Count 307 X10^3/uL (150-400); Red Blood Cell Count 3.64 X10^6/uL (4.5-5.9); Red Cell Distribution Width 15.2 % (11.6-14.8); White Blood Cell Count 8.1 X10^3/uL (4.5-11.0)
[2023-11-20 18:30] LABS: BUN Creatinine Ratio 14.1 (6-22); Blood Urea Nitrogen 12 mg/dL (9-20); Calcium 9.9 mg/dL (8.4-10.2); Carbon Dioxide 28 mmol/L (22-32); Chloride 105 mmol/L (98-107); Estimated Glomerular Filt Rate > 60 mL/min (>60); Glucose 125 mg/dL (80-110); HEMOLYSIS < 15 (0-50); Potassium 3.2 mmol/L (3.4-5.1); Sodium 141 mmol/L (137-145)
[2023-11-21 02:15] LABS: Hemoglobin A1C% w Est Avg Glu 7.2 % (4.0-6.0)
== END ==
PROVIDERS: Referring Provider Orthopaedic Surgery Orthopaedic Surgery of the Spine; Visit Provider Orthopaedic Surgery Orthopaedic Surgery of the Spine
DX: R73.9 Hyperglycemia, unspecified (principal); Z01.812 Encounter for preprocedural laboratory examination; Z01.818 Encounter for other preprocedural examination
CPT/HCPCS: 36415; 80048; 83036; 85025; 93005; 93010

== ENCOUNTER 2023-12-17 11:25 | Day surgery (SDC) | payer MEDICARE, OTHER, SELFPAY ==
[2022-01-25 15:55] VITALS: BMI 32.5
[2023-12-17 11:56] VITALS: BP 159/59; PULSE 51; RESP 16; TEMP 36.3; O2SAT 98
[2023-12-17] MEDS: LACTATED RINGERS 1,000 ML 42 ML IV (12:09)
--- NOTE | 2023-12-17 13:13 | P.HP_ITS ---
History of Present Illness History of Present Illness Chief complaint: Colonoscopy Narrative: Personal history of colon polyps and family history of colon cancer in first- degree relatives. 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 Surgical History (Updated 01/24/22 @ 13:14 by Rosalva Allen RN) Hx of bilateral cataract extraction (~2019) Hx of hernia repair (~1988) History of appendectomy Family History Father Diabetes mellitus Cancer Mother Cancer Sister Cancer Sister Cancer Family/Other Diabetes mellitus Social History (Updated 11/14/19 @ 10:19 by Aziza Ambriz) marital status: household members: spouse Smoking Status: Never smoker alcohol intake: current Meds Home Medications and Allergies Home Medications Medication Instructions Recorded Confirmed Type atorvastatin 40 mg tablet (Lipitor) 40 mg PO DAILY ##0 12/14/12 01/25/22 History calcium carbonate 500 mg calcium 1,000 mg PO DAILY PRN GI Upset ##0 12/14/12 01/25/22 History (1,250 mg) chewable tablet cholecalciferol (vitamin D3) 50 1,000 unit PO QDAY ##0 12/14/12 01/25/22 History mcg (2,000 unit) capsule (Vitamin D3) omega 8-kwf-cxv-fish oil 1,000 mg 1 cap PO DAILY ##0 12/14/12 01/24/22 History (120 mg-180 mg) capsule (Fish Oil) tamsulosin 0.4 mg capsule (Flomax) 0.4 mg PO HS ##0 12/14/12 01/25/22 History allopurinol 300 mg tablet 300 mg PO DAILY 11/27/19 01/24/22 History finasteride 5 mg tablet 5 mg PO DAILY 11/27/19 01/25/22 History metformin 1,000 mg tablet 1,000 mg PO BID 11/27/19 01/25/22 History ascorbic acid (vitamin C) 1,000 mg 1 gram PO BID 12/31/19 01/25/22 History tablet duloxetine 60 mg capsule,delayed 60 mg PO DAILY #90 caps 12/31/19 01/25/22 Rx release (Cymbalta) lactobacillus combination no.8 1 tab PO DAILY 12/31/19 01/24/22 History [Adult Probiotic] lisinopril 5 mg tablet 5 mg PO DAILY 12/31/19 01/25/22 History trazodone 100 mg tablet 100 mg PO BEDTIME PRN insomnia #90 12/31/19 01/25/22 Rx tabs gabapentin 800 mg tablet 1,200 mg (1.5 x 800 mg) PO TID 11/08/20 01/25/22 Rx #270 tabs ibuprofen-diphenhydramine citrate 1 - 2 cap PO BEDTIME PRN Sleep 01/24/22 01/25/22 History 200 mg-38 mg tablet (Advil PM) metoprolol succinate 100 mg 100 mg PO DAILY 01/24/22 01/25/22 History tablet,extended release 24 hr hydrocodone 5 mg-acetaminophen 325 1 tab PO Q4HR PRN Pain, Moderate 01/26/22 Rx mg tablet (4-6) #40 tabs Allergies Allergy/AdvReac Type Severity Reaction Status Date / Time prednisone AdvReac Severe nausea,all Verified 12/17/23 13:13 over body haze oxycodone [From Percocet] AdvReac Mild Nausea Verified 12/17/23 13:13 Exam Vital Signs (past 8 hours): - 12/17/23 11:56 Temperature 97.3 F L Pulse Rate 51 L Respiratory Rate 16 Blood Pressure 159/59 H Pulse Oximetry 98 Oxygen Delivery Method Room Air Oxygen Delivery Method Room Air Narrative Exam Narrative: Oropharynx free of lesions Chest clear to auscultation percussion cardiac exam reveals no S3 or murmur Assessment & Plan Assessment & Plan narrative: Family history of colon cancer and personal history of colon polyps need for f ollow-up colonoscopy. Risks, benefits, alternatives have been explained.
--- NOTE | 2023-12-17 13:14 | PM.OP.COLON ---
Operative Date/Time/Diagnoses Date of procedure: 12/17/23 Pre-op diagnosis: See indication and findings Procedure & Clinicians Study performed: Colonoscopy Indications: Family history of colon cancer and personal history of colon polyps Surgeon: Ness Gordon Procedure Notes Procedure in detail: After informed consent was obtained patient was placed in left lateral decubitus position. The video colonoscope was introduced the rectum slowly advanced cecum. Preparation was good. On slow withdrawal mucosa was carefully examined. The scope was removed. The patient tolerated procedure well. Blood loss none Complications none Sedation mac Findings 1. Poor prep found throughout the colon that was examined. A sticky coating of stool covered all gayle. This was unable to be completely removed. The scope then passed to approximately the descending colon. He will need to be rescheduled Will be in touch from the office about rescheduling Mr. Vizcaino.
[2023-12-17 13:31] VITALS: BP 120/60; PULSE 54; RESP 12; TEMP 36.8; O2SAT 100
[2023-12-17 13:36] VITALS: BP 130/58; PULSE 65; RESP 13; O2SAT 96
[2023-12-17 13:41] VITALS: BP 152/70; PULSE 57; RESP 13; TEMP 36.6; O2SAT 97
[2023-12-17 13:48] VITALS: BP 173/77; PULSE 47; RESP 14; O2SAT 97
[2023-12-17 14:02] VITALS: BP 180/72; PULSE 48; RESP 15; TEMP 36.2; O2SAT 97
== END 2023-12-17 14:15 | disposition home or self-care (01) ==
PROVIDERS: Referring Provider Internal Medicine Gastroenterology; Visit Provider Internal Medicine Gastroenterology
PROC: 0DJD8ZZ Inspection of Lower Intestinal Tract, Via Natural or Artificial Opening Endoscopic (ICD-10-PCS; CPT 45378; principal; 2023-12-17 12:30)
DX: Z12.11 Encounter for screening for malignant neoplasm of colon (principal); Z86.010 Personal history of colon polyps; Z80.0 Family history of malignant neoplasm of digestive organs
CPT/HCPCS: 45378; J2704

== ENCOUNTER 2023-12-24 12:01 | Day surgery (SDC) | payer MEDICARE, OTHER, SELFPAY ==
[2022-01-25 15:55] VITALS: BMI 32.5
--- NOTE | 2023-12-24 | PATH_ITS ---
[facility] Accession Number: [id number] No. of containers..02 Tissue . 01 Material submitted: . PART A: colon - SPLENIC FLEXURE PART B: colon - CECAL POLYP . 01 Diagnosis: Part A: SPLENIC FLEXURE: Tubular adenoma. . Part B: CECAL POLYP: Tubular adenoma. STO 12/31/2023 1511 Local . 01 Electronically signed: . Chris Adames MD, Pathologist NPI- [id number] . 01 Gross description: . Part A: SPLENIC FLEXURE: Received in formalin are 3 fragment(s) of blue, soft tissue measuring 0.3 x 0.3 x 0.2 cm to 0.6 x 0.5 x 0.4 cm submitted entirely in 1 cassette(s) . Part B: CECAL POLYP: Received in formalin is 1 fragment(s) of blue, soft tissue measuring 0.3 x 0.3 x 0.3 cm submitted entirely in 1 cassette(s) /KARINA 12/31/2023 1511 Local . 01 Pathologist provided ICD-10: D12.0, D12.3 . 01 CPT . 643329, 284072 Specimen Comment: A courtesy copy of this report has been sent to [phone] Performed at: 01 [facility] [address] [place] [address] [address], [place], [place] [id number] MD Chris Adames MD Phone: [phone]
[2023-12-24] MEDS: LACTATED RINGERS 1,000 ML 42 ML IV (13:30)
[2023-12-24 14:41] VITALS: BP 188/70; PULSE 74; RESP 16; TEMP 36.4; O2SAT 98
--- NOTE | 2023-12-24 15:22 | PM.HP.1 ---
History of Present Illness History of Present Illness Date Patient Seen: 12/24/23 Time Patient Seen: 15:22 Chief complaint: Colonoscopy Narrative: Family history of colon cancer. He has had some intermittent bleeding according to his . He has not had colon cancer screening and more than 10 years. 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 Surgical History Hx of bilateral cataract extraction (~2019) Hx of hernia repair (~1988) History of appendectomy Family History Father Diabetes mellitus Cancer Mother Cancer Sister Cancer Sister Cancer Family/Other Diabetes mellitus Social History marital status: household members: spouse Smoking Status: Never smoker alcohol intake: former Meds Home Medications and Allergies Home Medications Medication Instructions Recorded Confirmed Type calcium carbonate 500 mg calcium 1,000 mg PO DAILY PRN GI Upset ##0 12/14/12 01/25/22 History (1,250 mg) chewable tablet cholecalciferol (vitamin D3) 50 1,000 unit PO QDAY ##0 12/14/12 01/25/22 History mcg (2,000 unit) capsule (Vitamin D3) omega 7-zkh-cmq-fish oil 1,000 mg 1 cap PO DAILY ##0 12/14/12 01/24/22 History (120 mg-180 mg) capsule (Fish Oil) tamsulosin 0.4 mg capsule (Flomax) 0.4 mg PO HS ##0 12/14/12 12/24/23 History allopurinol 300 mg tablet 300 mg PO DAILY 11/27/19 12/24/23 History finasteride 5 mg tablet 5 mg PO DAILY 11/27/19 12/24/23 History metformin 1,000 mg tablet 1,000 mg PO BID 11/27/19 12/24/23 History ascorbic acid (vitamin C) 1,000 mg 1 gram PO BID 12/31/19 01/25/22 History tablet duloxetine 60 mg capsule,delayed 60 mg PO DAILY #90 caps 12/31/19 12/24/23 Rx release (Cymbalta) lactobacillus combination no.8 1 tab PO DAILY 12/31/19 01/24/22 History [Adult Probiotic] lisinopril 5 mg tablet 5 mg PO DAILY 12/31/19 12/24/23 History trazodone 100 mg tablet 100 mg PO BEDTIME PRN insomnia #90 12/31/19 12/24/23 Rx tabs gabapentin 800 mg tablet 1,200 mg (1.5 x 800 mg) PO TID 11/08/20 12/24/23 Rx #270 tabs ibuprofen-diphenhydramine citrate 1 - 2 cap PO BEDTIME PRN Sleep 01/24/22 12/24/23 History 200 mg-38 mg tablet (Advil PM) metoprolol succinate 100 mg 100 mg PO DAILY 01/24/22 12/24/23 History tablet,extended release 24 hr metformin 500 mg tablet,extended 500 mg PO BID 12/24/23 12/24/23 History release 24 hr Allergies Allergy/AdvReac Type Severity Reaction Status Date / Time prednisone AdvReac Severe nausea,all Verified 12/24/23 14:38 over body haze oxycodone [From Percocet] AdvReac Mild Nausea Verified 12/24/23 14:38 Review of Systems Review of Systems ROS: Yes All systems reviewed with the patient and are negative except as otherwise documented Exam Vital Signs (past 8 hours): - 12/24/23 14:41 Temperature 97.6 F Pulse Rate 74 Respiratory Rate 16 Blood Pressure 188/70 H Pulse Oximetry 98 Oxygen Delivery Method Room Air Oxygen Delivery Method Room Air Const General: cooperative HENNE Head: normal to inspection Eyes General: appearance normal, both eyes and all related structures Neck Neck: normal visual inspection Chest Chest: normal inspection of the chest Resp Effort & Inspection: normal respiratory effort Cardio Rate: regular rate GI Inspection: normal to inspection Skin General: no rashes or lesions noted Neuro General: patient alert and patient awake Extrem General: normal to inspection and no pedal edema Psych Appearance: grossly normal Assessment & Plan Assessment & Plan narrative: 73-year-old male with a family history of colon cancer and some intermittent rectal bleeding according to his . He is overdue for colon cancer screening. Colonoscopy is pursued today.
--- NOTE | 2023-12-24 15:23 | PM.PREOP ---
Pre-operative Note Interval Note History & Physical reviewed/Exam performed by Physician: Yes Changes to H&P: No ASA Class (for procedural sedation): III
[2023-12-24 16:18] VITALS: BP 117/65; PULSE 72; RESP 13; TEMP 36.1; O2SAT 99
--- NOTE | 2023-12-24 16:19 | PM.OP.COLON ---
Operative Date/Time/Diagnoses Date of procedure: 12/24/23 Time of procedure: 16:20 Pre-op diagnosis: Family history of colon cancer. Personal history of possible rectal bleeding Post-op diagnosis: same Procedure & Clinicians Study performed: Colonoscopy with hot snare polypectomy and cold forceps polypectomy Same procedure as scheduled: Yes Indications: Family history of colon cancer. Personal history of possible rectal bleeding Surgeon: John Fajardo Procedure Notes SCOAP/Timeout: Done Procedure in detail: After the risks and benefits were explained, written and verbal informed consent was obtained. The patient was brought into the procedure room and placed into the left lateral decubitus position. Please see anesthesia notes for sedation details. Digital rectal examination was accomplished. The scope was introduced into the patient and advanced under direct visualization to the cecum as identified by the appendiceal orifice and ileocecal valve. The scope was slowly withdrawn to carefully examine the mucosa for any defects or lesions. Comprehensive imaging was accomplished throughout the rectum including the dentate line. The colon was decompressed, the scope was then removed from the patient who tolerated the procedure well. Pediatric colonoscope Bowel prep adequate Scope withdrawal time: 12 minutes Sedation minutes: 34 Complications: none Impression: The patient had a tortuous and redundant colon. There was a sessile 8 mm polyp at the region of the splenic flexure excised by way of hot snare polypectomy. There was a diminutive polyp in the cecum removed by way of cold forceps. No additional colonic pathology was identified. Minimal internal hemorrhoids were appreciated. Endoscopic diagnosis 1. Colon polyps 2. Mild internal hemorrhoids 3. Lengthy redundant colon Post-procedure Plan for aftercare: 1. Await histology. 2. Repeat colonoscopy 5 years unless an earlier exam is indicated following pathology review. Disposition: PACU
[2023-12-24 16:23] VITALS: BP 136/69; PULSE 65; RESP 13; O2SAT 98
[2023-12-24 16:28] VITALS: BP 168/79; PULSE 65; RESP 15; O2SAT 98
== END 2023-12-24 16:52 | disposition home or self-care (01) ==
PROVIDERS: Referring Provider Internal Medicine Gastroenterology; Visit Provider Internal Medicine Gastroenterology
PROC: 0DJD8ZZ Inspection of Lower Intestinal Tract, Via Natural or Artificial Opening Endoscopic (ICD-10-PCS; CPT 45378; principal; 2023-12-24 13:30)
DX: Z12.11 Encounter for screening for malignant neoplasm of colon (principal); Z80.0 Family history of malignant neoplasm of digestive organs; K64.8 Other hemorrhoids; D12.4 Benign neoplasm of descending colon; D12.0 Benign neoplasm of cecum
CPT/HCPCS: 45385; 45380; J2704

== ENCOUNTER 2023-12-31 10:48 | Inpatient (IN) | payer MEDICARE, OTHER, SELFPAY ==
[2022-01-25 15:55] VITALS: BMI 32.5
[2023-12-31] VITALS (11 sets, daily range): BP systolic 104–170; BP diastolic 53–87; PULSE 47–77; RESP 13–19; TEMP 35.9–36.6; O2SAT 95–100; BMI 25.1
--- NOTE | 2023-12-31 12:53 | P.HP_ITS ---
History of Present Illness History of Present Illness Date Patient Seen: 12/31/23 Time Patient Seen: 12:56 Date of Onset of Symptoms: 10/17/22 Chief complaint: leg pain, weakness, poor balance Narrative: 73-year-old male presenting for evaluation low back and bilateral lower extremity pain. He had his MRI done, also here for his EMG/NCS. He has difficulty walking, standing, going up and down stairs due to progressively worsening weakness to his legs. He has tried home exercise program, NSAIDs, ice/heat with worsening symptoms for the last 6 months. Patient was referred by Dr Zheng to discuss worsening low back symptoms. Symptoms include low back pain, left lower extremity pain and numbness. He notes bilateral foot neuropathy. 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 Surgical History Hx of bilateral cataract extraction (~2019) Hx of hernia repair (~1988) History of appendectomy Family History Father Diabetes mellitus Cancer Mother Cancer Sister Cancer Sister Cancer Family/Other Diabetes mellitus Social History marital status: household members: spouse Smoking Status: Never smoker alcohol intake: former Meds Home Medications and Allergies Home Medications Medication Instructions Recorded Confirmed Type calcium carbonate 500 mg calcium 1,000 mg PO DAILY PRN GI Upset ##0 12/14/12 12/31/23 History (1,250 mg) chewable tablet cholecalciferol (vitamin D3) 50 1,000 unit PO QDAY ##0 12/14/12 12/31/23 History mcg (2,000 unit) capsule (Vitamin D3) omega 6-naq-zrt-fish oil 1,000 mg 1 cap PO DAILY ##0 12/14/12 12/31/23 History (120 mg-180 mg) capsule (Fish Oil) tamsulosin 0.4 mg capsule (Flomax) 0.4 mg PO HS ##0 03/02/13 03/18/24 History allopurinol 300 mg tablet 300 mg PO DAILY 11/27/19 12/31/23 History finasteride 5 mg tablet 5 mg PO DAILY 11/27/19 12/31/23 History ascorbic acid (vitamin C) 1,000 mg 1 gram PO BID 12/31/19 12/31/23 History tablet duloxetine 60 mg capsule,delayed 60 mg PO DAILY #90 caps 12/31/19 12/31/23 Rx release (Cymbalta) lactobacillus combination no.8 1 tab PO DAILY 12/31/19 12/31/23 History [Adult Probiotic] lisinopril 5 mg tablet 5 mg PO DAILY 12/31/19 12/31/23 History trazodone 100 mg tablet 100 mg PO BEDTIME PRN insomnia #90 12/31/19 12/31/23 Rx tabs gabapentin 800 mg tablet 1,200 mg (1.5 x 800 mg) PO TID 11/08/20 12/31/23 Rx #270 tabs ibuprofen-diphenhydramine citrate 1 - 2 cap PO BEDTIME PRN Sleep 01/24/22 12/31/23 History 200 mg-38 mg tablet (Advil PM) metoprolol succinate 100 mg 100 mg PO DAILY 01/24/22 12/31/23 History tablet,extended release 24 hr metformin 500 mg tablet,extended 500 mg PO BID 12/24/23 12/31/23 History release 24 hr Allergies Allergy/AdvReac Type Severity Reaction Status Date / Time No Known Drug Allergies Allergy Verified 12/31/23 11:25 Review of Systems Review of Systems ROS: Yes All systems reviewed with the patient and are negative except as otherwise documented Exam Vital Signs (past 8 hours): - 12/31/23 11:49 Temperature 97.4 F L Pulse Rate 47 L Respiratory Rate 16 Blood Pressure 104/57 L Pulse Oximetry 98 Oxygen Delivery Method Room Air Oxygen Delivery Method Room Air Neuro Other: decreased sensibility to bilateral L4, L5 dermatome, + straight leg raise to LLE, motor strength 4/5 in bilateral EHL, TA. Assessment & Plan Assessment & Plan narrative: Mr. Vizcaino is here for evaluation of his worsening difficulty to walk due to spinal stenosis causing severe leg weakness and poor balance. His MRI L-spine was independently reviewed by me today. I reviewed the MRI images and discussed how the findings correlates with his leg symptoms. I discussed treatment options including KRISSY, surgery of laminectomy alone versus laminectomy plus fusion at L4-5 level along with L3-4 hemilaminectomy. In order to fully decompression his spinal canal, he will require laminectomies bilaterally and more than 50% of facet resections bilaterally for neuroforamen decompression, which will render his spine unstable at L4-5 level and require a fusion procedure at the same time. Risks for surgery include but not limited to bleeding, infection, nerve/dura/bladder/bowel/blood vessel injury, need for additional procedure, even . Patient understands the risks and benefits of all treatment options. Patient elected to proceed with L4-5 fusion and L3-4 hemilaminectomy surgery. I scheduled him for L4-5 TLIF and L3-4 hemilaminectomy.
[2023-12-31] MEDS: CEFAZOLIN 2 GM/100 ML PREMIX 100 ML IV ×2 (13:26→20:38)
[2023-12-31] MEDS: BUPIVACAINE 0.25% (PF) 30 ML, EPINEPHrine 0.15 MG INJ (14:01)
[2023-12-31] MEDS: BUPIVACAINE LIPOSOME 266 MG/20 ML VIAL INJ (14:02)
--- NOTE | 2023-12-31 14:04 | SUR.OPER ---
Prone on spine table, head in foam head support, padded chest and pelvic supports, gel pad at knees, lower legs supported by pillows; nipples, genitalia and toes free of pressure, arms secured on foam padded arm boards at <90 degrees abduction. Tape over blanket at thigh secured to table.
[2023-12-31] MEDS: LACTATED RINGERS 1,000 ML 42 ML IV (14:21)
--- NOTE | 2023-12-31 15:56 | DI.RAD.S_ITS ---
PROCEDURE: XR LUMBAR SPINE 2-3V INDICATIONS: L4-5 TLIF TECHNIQUE: 2 views of the lumbar spine were acquired. COMPARISON: [facility], CR, XR LUMBAR SPINE MIN 4V, 07/26/2020, 13:17. FINDINGS: Intraoperative images demonstrating L4-5 posterior fusion with intervertebral spacer. Hardware is intact. Good anatomic alignment. IMPRESSION: Intervertebral L4-5 posterior fusion. Dictated by: Yarely De Jesus M.D. on 01/01/2024 at 8:49 Approved by: Yarely De Jesus M.D. on 01/01/2024 at 8:49
[2023-12-31] MEDS: hydrOXYzine 50 MG/ML INJ 25 MG IM (16:21)
--- NOTE | 2023-12-31 16:28 | PM.OP.1 ---
Operative Date/Time/Diagnoses Date of procedure: 12/31/23 Time of procedure: 13:00 Pre-op diagnosis: 1. L3-4, L4-5 spinal stenosis with neurogenic claudication 2. L3-4, L4-5 foraminal stenosis with radiculopathy Post-op diagnosis: same Procedure & Clinicians Procedure: 1. L4-5 Postero-lateral and posterior interbody fusion 2. L4-5 interbody cage placement. 3. L4-5 decompressive laminectomy with bilateral facetecomies 4. L4-5 Posterior non-segmental instrumentation 5. L3-4 left hemilaminectomy 6. [place] of bone marrow from iliac crest 7. Utilization of microsurgical technique and operating microscope Same procedure as scheduled: Yes Indications: Patient has been having chronic back pain and worsening lumbar radiculopathy and symptoms of neurogenic claudication. Patient had multiple falls over the last 2 months due to his progressive leg weakness poor balance causing difficulty walking standing. Patient failed multiple conservative management with worsening pain weakness and numbness in his lower extremity. Patient has been having difficulty performing activity of daily living. After discussing risks benefits of treatment options, patient elected proceed with surgery on urgent basis due to his progressive neurological deterioration. Surgeon: Dylan Nuñez High Raw Sugar Boiler: Teresa Stroy Click Yes if Unassisted: No Anesthesia Type: General Operative Notes Closure Type: primary Prosthetic devices, grafts, tissues, transplants, or devices: Globus revolve screws, Rise cage Estimated Blood Loss (mL): 50 Blood products transfused: none Procedure in detail: Patient was seen in the preoperative area. Risks and benefits of the surgery was discussed with the patient. Informed consent was obtained from the patient and placed in the chart. Surgical site was marked. Patient was taken to the operative room. General anesthesia was administered. Prophylactic antibiotic was given to the patient less than 30 min before the incision was made. Patient was placed into a prone position on the Florian table. Patient's back was then prepped and draped in the sterile fashion. Time-out was performed at this time. Using AP and lateral C-arm imaging the interval between L3-4 L4-5 was identified and marked on patient's back. A 2 inch incision 2 in from midline was made on the left side first. The fascia was incised in line with skin incision. Globus MARS retractors was placed inside the incision and docked onto the L4 lamina. Using microsurgical technique and operating microscope, a L4 laminectomy and L4-5 facetectomy was performed using a Kerrison rongeur. Patient was found to have severe central and neuroforaminal stenosis due to hypertrophied ligamentum flavum facet cyst and significant facet arthropathy. The disc space at L4-5 was identified. The laminectomy and facetectomy was performed in order to decompress patient's cauda equina as well as the nerve roots exiting at the L4-5 level. After the decompression was completed the L4-5 level was found to be grossly unstable and required a fusion procedure at the same time. And a total diskectomy was performed at L4-5 level. The endplates were decorticated using a rasp and shaver. The total diskectomy and decortication was performed at L4-5 level in order to to accomplish a L4-5 fusion. The local bone from the laminectomy and facetectomy was saved for local bone grafting. After the total diskectomy and decortication was completed, DBM bone graft material was combined with local bone that was harvested earlier. At this time, a separate skin is incision was made over the iliac crest. A Jamshidi needle was inserted into the iliac crest through a separate skin incision. 5 cc of bone marrow aspiration was obtained through the separate skin incision using a Jamshidi needle from the iliac crest. The bone marrow aspiration was combined with local bone and the via cell bone grafting material. The bone grafting material was placed into the L4-5 interbody space along with a expandable cage. The cage was expanded to its maximum height using the torque limiting screwdriver. At this time the MARS retractor was redirected over the L3 lamina. Using microsurgical technique and operating microscope, a L3-4 heminectomy was performed using the Kerrison rongeur. The ligamentum flavum was also resected on both sides of the hemilaminectomy for further decompression of the epidural space bilaterally. At this time a mirror image incision was made on the right side. The fascia was incised in line with the skin incision. Globus MARS retractor was inserted and docked onto the L4-5 posterolateral gutter. Using the power drill, posterior-lateral decortication was performed at L4-5 level until bleeding cortical bone was identified. The remaining bone grafting material was placed into the L4-5 posterior lateral gutter he order to accomplish posterolateral fusion at the L4-5 level. Using the double C-arm technique, pedicle screws were placed into the L4 and L5 pedicles bilaterally. This was done by placing the Jamshidi needle into the pedicles, then placing the guidewires over the Jamshidi needle, and finally placing the cannulated screws over the guidewires bilaterally. After the pedicle screws were placed, 2 titanium rods was locked into the heads of the pedicle screws using locking caps and torque limiting screwdriver. After all the hardware was placed, and confirmed with AP and lateral C-arm imaging, the wound was then irrigated with sterile normal saline and packed with Ray-Angelia gauze for 3 min to accomplish hemostasis. After the gauze was removed the deep fascia was closed with #1 Vicryl suture. The subcutaneous layer was closed with 2-0 Vicryl. The skin was closed with skin christa. Patient tolerated the procedure well. There were no complications. The Operation could not have been safely performed without compromising the technical result or length of the procedure, without the assistance of a skilled surgical services assistant. The surgical services assistant was medically necessary for proper positioning, retraction and manipulation of instruments, proper exposure, surgical preparation, and manipulation of tissue. Neuro monitoring was utilized throughout the entire procedure. There was difficulty getting lower extremity SSEP bilaterally throughout the entire procedure since beginning until completion of the procedure. Complications: none Post-operative Condition: stable Disposition: PACU Plan for aftercare: admit to inpatient hospital
[2023-12-31] MEDS: HYDROMORPHONE 1 MG INJ IV ×2 (16:36→16:45)
[2023-12-31] MEDS: methocarbamoL 500 MG TABLET 750 MG PO (17:00)
[2023-12-31] MEDS: LACTATED RINGERS 1,000 ML 125 ML IV (18:09)
--- NOTE | 2023-12-31 18:21 | PC.NURSE ---
Assess- Patient is alert and oriented x3, he is sleepy as he had dilaudid 1mg, robaxan 750mg orally, and vistaril injection. He will wake up and respond to questions. Vss- Systolic pressures have been 165-170 but patient is aymptomatic and is resting comfortably. Dressing to lower back is cdi, patient is comfortably. He had a L4-L5 TLIF and L3-L4 hemilamenectomy. Patient is resting now.
[2023-12-31] MEDS: TAMSULOSIN 0.4 MG CAPSULE PO (20:39)
[2023-12-31] MEDS: SENNOSIDES 8.6 MG TABLET 17.2 MG PO (20:39)
[2023-12-31] MEDS: DOCUSATE 100 MG CAPSULE PO (20:39)
[2023-12-31] MEDS: ASCORBIC ACID 500 MG TABLET 1000 MG PO (20:39)
[2023-12-31] MEDS: METFORMIN XR 500 MG TABLET PO (20:39)
[2023-12-31] MEDS: GABAPENTIN 400 MG CAPSULE 1200 MG PO (20:39)
[2024-01-01] VITALS (7 sets, daily range): BP systolic 120–175; BP diastolic 58–82; PULSE 53–84; RESP 16–19; TEMP 36–37.5; O2SAT 92–99
[2024-01-01] MEDS: OXYCODONE IR 5 MG TABLET PO ×6 (01:31→18:12)
[2024-01-01] MEDS: LACTATED RINGERS 1,000 ML 125 ML IV (02:33)
[2024-01-01] MEDS: HYDROMORPHONE 0.5 MG INJ IV ×2 (02:33→21:22)
[2024-01-01] MEDS: CEFAZOLIN 2 GM/100 ML PREMIX 100 ML IV (05:21)
[2024-01-01] MEDS: ASCORBIC ACID 500 MG TABLET 1000 MG PO ×2 (08:11→20:56)
[2024-01-01] MEDS: GABAPENTIN 400 MG CAPSULE 1200 MG PO ×3 (08:12→20:55)
[2024-01-01] MEDS: allopurinoL 100 MG TABLET 300 MG PO (08:12)
[2024-01-01] MEDS: FISH OIL 1,000 MG CAPSULE 1000 MG PO (08:12)
[2024-01-01] MEDS: FINASTERIDE 5 MG TABLET PO (08:12)
[2024-01-01] MEDS: CHOLECALCIFEROL (VITAMIN D3) 1,000 UNIT TABLET 1000 UNIT PO (08:13)
[2024-01-01] MEDS: lisinopriL 5 MG TABLET PO (08:13)
[2024-01-01] MEDS: DOCUSATE 100 MG CAPSULE PO ×2 (08:13→20:56)
[2024-01-01] MEDS: DULOXETINE 30 MG CAPSULE 60 MG PO (08:13)
[2024-01-01] MEDS: LACTOBACILLUS ACIDOPHILUS TABLET 1 EACH PO (08:13)
[2024-01-01] MEDS: METFORMIN XR 500 MG TABLET PO ×2 (08:14→20:56)
[2024-01-01] MEDS: ACETAMINOPHEN 325 MG TABLET 650 MG PO ×2 (08:16→18:12)
--- NOTE | 2024-01-01 09:47 | OT.IP.EVAL ---
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 Pressure ulcer (~12/2021) PTSD (post-traumatic stress disorder) Right knee DJD Sleep apnea Ulcer (~1969) Surgical History (Last Reviewed 12/31/23 @ 12:57 by Dylan Nuñez MD) History of appendectomy Hx of bilateral cataract extraction (~2019) Hx of hernia repair (~1988) Occupational Therapy Inpatient Evaluation/Re-Eval M1 PT/OT-IP Prior Functional Status Start: 01/01/24 13:31 Freq: NEEDED Status: Active Protocol: Document 01/01/24 10:20 AB (Rec: 01/01/24 13:48 AB [id number]) Medical Review Prior Functional Status Medical History Reviewed Yes Communication able to make needs known Mobility and Gait pt stated that he was modified independent with all mobilities and ambulation using a SPC for the last month but spouse occasionally assists him especially at night when he has to use the toilet due to dizziness. pt stated that he has chronic dizziness when he has been laying down or sitting for too long. pt with h/o falls and stated that he already had 6 falls for this year. Social History Household Members spouse Living Arrangements House Number of Floors (Floors) One Floor Number of Stairs To Enter/Railing? 1 step to enter the house Home Environment Standard Height Toilet,Walk in Shower,Built-In Shower Seat Home Equipment Front Wheel Walker,Four Wheel Walker,Straight Cane,Manual Wheelchair,Hand Held Shower, Grab Bars In Shower M1 PT/OT-IP Prior Functional Status Start: 01/01/24 13:34 Freq: NEEDED Status: Active Protocol: Document 01/01/24 13:35 CGR (Rec: 01/01/24 13:50 CGR [id number]) Medical Review Prior Functional Status Medical History Reviewed Yes Communication Pt is an effective verbal communicator. Mobility and Gait Pt was IND or used a SPC (only recently) Activities of Daily Living and IADL's Pt was IND for all ADLs and most IADLs. His does most of the cooking. Social History Household Members spouse Living Arrangements House Number of Floors (Floors) One Floor Number of Stairs To Enter/Railing? 1 step to enter without railing. Home Environment Standard Height Toilet,High Toilet,Walk in Shower Home Equipment Four Wheel Walker,Straight Cane,Shower Seat with Backrest ,Hand Held Shower,Grab Bars In Shower Employment Status Retired Additional Social History Comment Pt lives with his Em and has a flat bed. He is an active light truck driver. M2 OT-IP Current Condition Start: 01/01/24 13:34 Freq: Status: Active Protocol: Document 01/01/24 13:35 CGR (Rec: 01/01/24 13:50 CGR [id number]) Occupational Therapy Current Condition Current Condition Evaluation Date 01/01/24 Treatment Diagnosis L3-5 TLIF Diagnosis Onset Date 12/31/23 M3 OT- IP Subjective and Pain Start: 01/01/24 13:34 Freq: Status: Active Protocol: Document 01/01/24 13:35 CGR (Rec: 01/01/24 13:50 CGR [id number]) OT- Subjective Occupational Therapy Visit Type Type Initial Evaluation Visit Start Time 09:25 Visit Stop Time 09:47 Notes Pt orthostatic during session. Sitting BP 165/62, standing 136/55. Pt states some dizziness and I feel off. Session limited by orthostatics. OT Pain Assessment Pain When Pain Assessed At Rest Pain Present Pain Present Pain Reported Location low back Intensity 7 Scale Used Numeric (0 - 10) Management Techniques Distraction,Modification of Treatment,Re-positioning, Timing of Activity with Medications M4 OT- IP ADL's Start: 01/01/24 13:34 Freq: Status: Active Protocol: Document 01/01/24 13:35 CGR (Rec: 01/01/24 13:50 CGR [id number]) OT [id number] Comments OT Self-Feeding Comments not meal time OT ADL-Grooming Comments OT Grooming Comments not performed OT ADL-Oral Care Comments Oral Care Comments not performed OT ADL-Dressing General Eval Lower Body Dressing Ability Total Assistance Areas Needing Assistance Socks Comments OT Dressing Comments educated pt on need for DME for LB dressing. Will follow up for teaching LB dressing. OT ADL-Toileting General Evaluation Toileting Ability Minimal Assistance Devices Toileting Assistive Devices Urinal Comments OT Toileting Comments Pt requesting to get to toilet but given BP, pt was agreeable to standing at bedside for use of urinal. He initially missed the urinal but then was able to manage without intervention but needed extra time to perform OT ADL-Bathing Comments OT Bathing Comments not performed M5 OT- IP IADL's Start: 01/01/24 13:34 Freq: Status: Active Protocol: Document 01/01/24 13:35 CGR (Rec: 01/01/24 13:50 CGR [id number]) OT-Instrumental Activities of Daily Living Deficits IADL Deficits Identified No Deficits Home Safety Awareness Awareness of Need for Assistance at Home Good Awareness Ability to Problem Solve Emergency Able to Problem Solve Situations Medication Management Medication Management No Deficits Identified Money Management Money Management No Deficits Identified Meal Preparation Meal Preparation Caregiver Provides Assist Medical Doctor Medical Doctor Caregiver Provides Assist Driving Driving Comments Pt educated on not driving till cleared by MD. M6 OT- IP Functional Cognition Start: 01/01/24 13:34 Freq: Status: Active Protocol: Document 01/01/24 13:35 CGR (Rec: 01/01/24 13:50 CGR [id number]) Cognitive Factors Limiting Selfcare Function Cognitive Ability Level of Alertness Alert Patient Orientation Name,Age,Birthday,Month,Date, Year,Day of Week,Place, Situation Attention Span Ability Capable of Focused Attention, Capable of Sustained Attention OT- Vision and Hearing OT- Hearing Assessment OT- Hearing Assessment WFL OT- Vision Assessment Visual Acuity WFL,Glasses For Reading Visual Attentiveness WFL Occular Pursuits WFL Visual Convergence WFL M7 OT- IP Mobility and Balance Start: 01/01/24 13:34 Freq: Status: Active Protocol: Document 01/01/24 13:35 CGR (Rec: 01/01/24 13:50 CGR [id number]) OT- Bed Mobility Assessment Rolling Type of Rolling Log Rolling,Roll to Left Supine to Sit Supine to Sit Assist Minimal Assistance Scooting Scooting to Edge of Bed Standby Assistance OT-Transfer Assessment Sit to and From Stand Sit to and from Stand Standby Assistance Transfers Transfer Ability Standby Assistance Technique Transfer Destination Bed,Chair Transfer Technique Stand Step Pivot Devices Transfer Assistive Devices Gait Belt,Front Wheeled Walker Comments Mobility Comments PT limited to transfer only d/ t drop in BP. OT- Gait Assessment Comments Gait Ability Comments not performed d/t orthostatics OT- Balance Assessment Sitting Balance and Reactions Static Sitting Balance Ability Good Dynamic Sitting Balance Ability Good M8 OT- IP Objective Assessments Start: 01/01/24 13:34 Freq: Status: Active Protocol: Document 01/01/24 13:35 CGR (Rec: 01/01/24 13:50 CGR [id number]) OT Gross Range of Motion Upper Extremity Range of Motion Assessment Within Functional Limits OT Strength Upper Extremity Strength Assessment Within Functional Limits Comments Strength Comments 4+/5 OT- Coordination Assessment Upper Extremity Finger to Nose Test Within Functional Limits Finger Tapping Test Within Functional Limits OT-Muscle Tone Assessment Muscle Tone WNL Yes OT Sensation Assessment Edema Edema Absent M9 OT- IP Assessment and Plan Start: 01/01/24 13:34 Freq: Status: Active Protocol: Document 01/01/24 13:35 CGR (Rec: 01/01/24 13:50 CGR [id number]) OT Summary Assessment and Plan Potential Rehabilitation Potential Excellent Analytic Complexity at Evaluation Moderate Summary OT Impairments Pain,Balance,Functional Mobility,Grooming,Dressing, Toileting,Bathing,Toilet Transfers,Shower Transfers, Activity Tolerance Progress Towards Goals Slow Progress due to Activity Tolerance Assessment Summary Pt presents as a moderate complexity evaluation s/p admit for L3-L5 TLIF. Pt with orthostatic hypotention which is limiting his abilities at this time. Pt will continue to benefit from OT services and needs LB dressing training. Pt is likely to discharge home with help from his when medically ready. Goals Self-Feeding Goal Independent Grooming Goal Independent Dressing Goal Independent,Commercial Loan Coordinator,Sock Aid Toileting Goal Independent Bathing Goal Independent Toilet Transfer Goal Independent Shower Transfer Goal Independent Days to Meet Goals 2 Frequency of Treatment Frequency Of Treatment Once a Day Treatment Plan OT Treatment Plan ADL Training,Functional Mobility,Patient/Family Education,Discharge Planning Other Treatment Recommendations and Next LB dressing training. Treatment Focus Discharge Recommendations OT Discharge Recommendations Home with Assistance Transportation Needs at Discharge Private Vehicle
--- NOTE | 2024-01-01 10:20 | PT.IIE ---
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 Pressure ulcer (~12/2021) PTSD (post-traumatic stress disorder) Right knee DJD Sleep apnea Ulcer (~1969) Physical Therapy Inpatient Evaluation/Re-Eval M1 PT/OT-IP Prior Functional Status Start: 01/01/24 13:31 Freq: NEEDED Status: Active Protocol: Document 01/01/24 10:20 AB (Rec: 01/01/24 13:48 AB [id number]) Medical Review Prior Functional Status Medical History Reviewed Yes Communication able to make needs known Mobility and Gait pt stated that he was modified independent with all mobilities and ambulation using a SPC for the last month but spouse occasionally assists him especially at night when he has to use the toilet due to dizziness. pt stated that he has chronic dizziness when he has been laying down or sitting for too long. pt with h/o falls and stated that he already had 6 falls for this year. Social History Household Members spouse Living Arrangements House Number of Floors (Floors) One Floor Number of Stairs To Enter/Railing? 1 step to enter the house Home Environment Standard Height Toilet,Walk in Shower,Built-In Shower Seat Home Equipment Front Wheel Walker,Four Wheel Walker,Straight Cane,Manual Wheelchair,Hand Held Shower, Grab Bars In Shower M2 PT-IP Current Condition Start: 01/01/24 13:31 Freq: NEEDED Status: Active Protocol: Document 01/01/24 10:20 AB (Rec: 01/01/24 13:48 AB [id number]) Physical Therapy Current Condition Current Condition Evaluation Date 01/01/24 Treatment Diagnosis s/p L4-5 TLIF; difficulty in walking Onset Date 12/31/23 M3 PT-IP Subjective Start: 01/01/24 13:31 Freq: NEEDED Status: Active Protocol: Document 01/01/24 10:20 AB (Rec: 01/01/24 13:48 AB [id number]) Subjective Physical Therapy Visit Type Type Initial Evaluation Visit Start Time 10:20 Visit Stop Time 11:00 Number of WIRE TAPER Visits 0 Physical Therapy Visit Comments Patient Comments agreeable to do PT Therapy Pain Assessment Pain When Pain Assessed At Rest Pain Present Pain Present Pain Reported Location low back Intensity 7 Scale Used increases to 8/10 with mobility Pain Behaviors Guarding Pain Management Techniques Apply Cold,Distraction, Modification of Treatment,Re- positioning,Timing of Activity with Medications M4 PT-IP Mobility and Gait Start: 01/01/24 13:31 Freq: NEEDED Status: Active Protocol: Document 01/01/24 10:20 AB (Rec: 01/01/24 13:48 AB [id number]) PT-Bed Mobility Assessment Rolling Type of Rolling Log Rolling Level of Assist Contact Guard Assistance Supine to Sit Supine to Sit Minimal Assistance Sit to Supine Sit to Supine Contact Guard Assistance PT-Transfer Assessment Sit to and From Stand Sit to and from Stand Contact Guard Assistance, Minimal Assistance,1 Person Assistance,Use of Upper Extremities Equipment Transfer Assistive Device Gait Belt,Front Wheeled Walker Orthotic/Prosthetic Devices or Brace: No Transfers Transfer Destination Bed,Chair Transfer Technique Stand Step Pivot Transfer Ability Level of Assist Contact Guard Assistance, Minimal Assistance,1 Person Assistance,Use of Upper Extremities Comments Mobility Comments pt sitting on the chair. stated that his BP was low when he saw OT earlier. obtained PLOF and home set up from pt. reviewed back precautions and log roll bed mobility. BP checked in sittin/67. pt completed sit to stand min A and cues. no c/o dizziness. completed step transfer to bed using fWW min A. BP checked : 167/64. completed sit to supine min A and max cues for log roll bed mobility. pt needing assistance for LE elevation to bed. completed supine to sit CGA and cues. BP in sittin/78. completed sit to stand from EOB CGA. cued for quads activation. pt was able to maintain standing CGA using fWW. BP in standin/56. no c/o dizziness. pt tolerated 2 more minutes of standing and BP checked again: 142/61. pt completed step transfer to chair using FWW CGA. pt agreed to ambulate. completed sit to stand from chair CGA to min A and max cues. ambulated in room using fWW CGA to min A ~ 20 ft. pt presents with unsteady gait and decrease LULY with R LE tends to cross over midline. pt sat back on chair and positioned. call light and table placed within reach. caregiver training set up at 2pm this afternoon. Gait Assessment Gait Gait Assistance Required: Contact Guard Assist,Minimum Assistance Distance (Feet) 20 Able to Maintain Weight Bearing Status Yes During Gait Assistive Devices Assistive Device Gait Belt,Front Wheeled Walker Orthotic/Prosthetic Devices or Brace: No Gait Deviations General Gait Pattern Decreased Stride Length, Decreased Feet Clearance,Step- to Gait Factors Limiting Gait Function Factors Limiting Gait Function Decreased Activity Tolerance, Decreased Strength,Difficulty Following Directions,Limited Range of Motion,Pain,Poor Balance,Poor Safety Awareness PT-Balance Assessment Sitting Balance and Reactions Static Sitting Balance Ability Good Dynamic Sitting Balance Ability Good Standing Balance and Reactions Static Standing Balance Ability Fair Dynamic Standing Balance Ability Fair Device Used FWW M5 PT-IP Objective Assessments Start: 01/01/24 13:31 Freq: NEEDED Status: Active Protocol: Document 01/01/24 10:20 AB (Rec: 01/01/24 13:48 AB [id number]) Orientation Orientation/Cognition Level of Alertness Alert Orientation Name,Place,Situation Language Function Ability Hard of Hearing Safety Awareness Decreased Safety Awareness Memory Description Short Term Impaired Gross Range of Motion Lower Extremity ROM Assessment Within Functional Limits Strength Lower Extremity Strength Assessment Right Impaired Hip 4-/5 Knee 3+/5 Sensation Assessment Sensation Gross Sensation Right LE Impaired,Left LE Impaired Sensation Description Numbness,Tingling Comments Sensation Comments pt stated that he has diabetic neuropathy on B feet Muscle Tone Muscle Tone WNL Yes M6 PT-IP Treatment Start: 01/01/24 13:31 Freq: NEEDED Status: Active Protocol: Document 01/01/24 10:20 AB (Rec: 01/01/24 13:48 AB [id number]) Physical Therapy Treatment Education Education Provided Precautions,Weight Bearing Status,Post-Op Packet,Safety M7 PT-IP Assessment and Plan Start: 01/01/24 13:31 Freq: NEEDED Status: Active Protocol: Document 01/01/24 10:20 AB (Rec: 01/01/24 13:48 AB [id number]) PT Summary Assessment and Plan Potential Rehabilitation Potential Fair Status of Condition at Evaluation Evolving Summary Impairments Pain,ROM,Strength,Balance, Coordination,Sensation,Tone, Cognition,Bed Mobility, Transfers,Gait,Activity Tolerance Assessment Summary pt is a 73 y/o M s/p L 4-5 TLIF and L3-4 L hemilaminectomy POD 1. pt requiring CGA to min A with mobility using FWW with incidence of orthostatic hypotension but pt able to tolerate PT session. caregiver training set up at 2pm this afternoon. will continue to assess progress. Goals Bed Mobility Goal Standby Assistance Transfer Goal Standby Assistance,Front Wheeled Walker Gait Goal Standby Assistance,Front Wheel Walker Gait Distance 200 Other Goals up/down 1 step using FWW SBA Days to Meet Goals 5 Frequency of Treatment Frequency Of Treatment Twice a Day Treatment Plan Physical Therapy Treatment Plan Bed Mobility Training,Transfer Training,Gait Training, Therapeutic Exercise,Balance Retraining,Post Op Education, Discharge Planning,Hot or Cold Pack,Neuromuscular Re-ed, Coordination Retraining,Manual Therapy Precautions Lumbar Precautions Log Roll,No Twisting,Limit Bending,Lifting Restriction of 10 lbs,Gait Belt above Incisional Area Recommendations To Nursing Amount of Assist Needed 1 Person Assist Discharge Recommendations PT Discharge Recommendations Home with 07/05 Assist Available,Home Health Transportation Needs at Discharge Private Vehicle
--- NOTE | 2024-01-01 10:28 | PM.PNPO.1 ---
Subjective Subjective Date Patient Seen: 01/01/24 Time Patient Seen: 07:15 Interval history: Robbin is found lying in his bed comfortably. He states the majority of the numbness and tingling into his legs have resolved. His only complaint is he still has some light tingling in his left toes. He has been able to control his pain with oral medications and has been able to get up and urinate on his own. Exam Vital Signs (past 8 hours): - 01/01/24 05:05 01/01/24 08:00 01/01/24 08:12 Temperature 98.2 F 99 F Pulse Rate 61 81 Respiratory Rate 17 16 Blood Pressure 120/58 L 161/82 H Pulse Oximetry 99 97 Oxygen Delivery Method Room Air Oxygen Flow Rate 0 01/01/24 08:13 Temperature Pulse Rate 80 Respiratory Rate Blood Pressure 161/82 H Pulse Oximetry Oxygen Delivery Method Oxygen Flow Rate Oxygen Delivery Method Room Air Oxygen Flow Rate 0 Narrative Exam Narrative: Dressing appears to be well-maintained no signs of drainage. Right lower extremity sensation intact L1-S3 dermatomes. 5/5 EHL, FHL, TA, TP, knee flexors and extensors Left lower extremity sensation decreased over L5 dermatome, otherwise L1-L4, S1-S3 sensation intact. Muscle strength 3/5 EHL, FHL, TA, 5/5 TP, knee flexors and extensors. 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 Surgical History Hx of bilateral cataract extraction (~2019) Hx of hernia repair (~1988) History of appendectomy Family History Father Diabetes mellitus Cancer Mother Cancer Sister Cancer Sister Cancer Family/Other Diabetes mellitus Social History marital status: household members: spouse Smoking Status: Never smoker alcohol intake: former Assessment & Plan Post-op Postoperative Procedures: Procedures Operation Date: 12/31/23 12:45 Actual Procedure Side Surgeon p L4-5 TLIF L3-4 Hemilaminectomy Dylan Nuñez MD Postoperative day: 1 Postoperative status: doing well Postoperative status narrative: Reviewing patient's preoperative exam decreased sensation over the left L5 dermatome with decreased muscle strength was present preoperatively. All other conditions noted to have improved postoperatively. Postoperative plan: routine post-op care Postoperative plan narrative: Multimodal pain control. Patient will work with physical therapy to help with ambulation and rehabilitation of the left lower extremity. We will continue to observe patient's progress. Contacted Dr. Nuñez with findings and agrees with plan. Quality VTE Deep Vein Thrombosis/Pulmonary Embolism Present on Admission: No
--- NOTE | 2024-01-01 11:56 | CM.DANOTE ---
Initial DCP Assessment Note Pt is a 73 yo male, resident of [place], now POD#[address] Nuñez PCP: KELLY Whitfield Payer: [facility]/[place] for [facility] Reviewed chart, pt discussed in multidisciplinary rounds this morning. Therapy has cleared pt for return home w/family to assist and pt has planned for home, although patient has been struggling with labile blood pressures. Anticipate patient will remain here at least another evening. No barriers identified at this time to patient's safe discharge home w/family to assist; close outpatient f/u recommended. CM team will plan to follow closely in case any DC needs or concerns arise. WENDI Guerrero Discharge Planning/Care Management CM Discharge Assessment Start: 01/01/24 11:44 Freq: Status: Active Protocol: Document 01/01/24 11:44 MAYO (Rec: 01/01/24 11:55 [id number]) Discharge Planning Assessment Assigned Travel Accommodation Inspector WENDI Swann DPOA/Assigned Designee Name Em Vizcaino, spouse Contact Information [phone] Advance Directives? Yes Advance Directives on File No History Provided By Patient,Medical Record Prior Living Arrangements House Household Members spouse Type of transportation used prior to Drives own vehicle admit Independent with ADL's Yes Is patient alert and oriented? Yes Patient/Family Preference OP PT Therapy Barriers to Discharge No Comment Once medically stable Discharge Plan Home Transportation Arrangement Spouse Referrals Initiated None needed
--- NOTE | 2024-01-01 14:15 | PT.IPTN ---
Current Diagnoses Spinal stenosis, lumbar region with neurogenic claudication (12/31/23) Surgery Performed Operation Date: 12/31/23 12:45 Actual Procedures p L4-5 TLIF L3-4 Hemilaminectomy - Dylan Nuñez MD Physical Therapy Treatment Note M2 PT-IP Current Condition Start: 01/01/24 13:31 Freq: NEEDED Status: Active Protocol: Document 01/01/24 10:20 AB (Rec: 01/01/24 13:48 AB [id number]) Physical Therapy Current Condition Current Condition Evaluation Date 01/01/24 Treatment Diagnosis s/p L4-5 TLIF; difficulty in walking Onset Date 12/31/23 M3 PT-IP Subjective Start: 01/01/24 13:31 Freq: NEEDED Status: Active Protocol: Document 01/01/24 14:15 AB (Rec: 01/01/24 16:56 AB [id number]) Subjective Physical Therapy Visit Type Type Treatment Note Visit Start Time 14:15 Visit Stop Time 15:10 Number of [employer]MENT[employer] Visits 0 Physical Therapy Visit Comments Patient Comments agreeable to do PT Therapy Pain Assessment Pain When Pain Assessed At Rest Pain Present Pain Present Pain Reported Location low back Intensity 7 Scale Used Numeric (0 - 10) M4 PT-IP Mobility and Gait Start: 01/01/24 13:31 Freq: NEEDED Status: Active Protocol: Document 01/01/24 14:15 AB (Rec: 01/01/24 16:56 AB [id number]) PT-Bed Mobility Assessment Rolling Type of Rolling Log Rolling Level of Assist Standby Assistance Supine to Sit Supine to Sit Standby Assistance Sit to Supine Sit to Supine Standby Assistance PT-Transfer Assessment Sit to and From Stand Sit to and from Stand Contact Guard Assistance,1 Person Assistance,Use of Upper Extremities Equipment Transfer Assistive Device Gait Belt,Front Wheeled Walker Orthotic/Prosthetic Devices or Brace: No Transfers Transfer Destination Bed Comments Mobility Comments pt suine in bed. spouse in room. educated spouse regarding pt's back precautions and log roll bed mobility. BP in supine: 147/60. pt completed log roll supine to sit SBA. BP in sittin/ 46. no c/o dizziness or other symptoms. pt tolerated 2 more minutes of sitting and BP checked: 139/57. educated spouse on safety belt management and how to assist pt. spouse was able to put safety belt on pt. assisted pt with sit to stand and ambulated pt with ambulation in room using FWW CGA ~ 20 ft. stair climbing training. educated pt and spouse with stair climbing. spouse assisted pt with sit to stand from EOB and pt ambulated towards platform step using fWW with spouse assisting. completed up/down platform step using fWW with spouse assisting. pt repeated x 2 sets with PT providing cues on first set and spouse able to assist and cue pt on 2nd set. pt requested to go back to bed . pt ambulated back to EOB using FWW CGA. completed sit to supine SBA. positioned pt in bed. call light and table placed within reach. BP at end of tx session: 139/57. pt and spouse without further concerns. Gait Assessment Gait Gait Assistance Required: Contact Guard Assist,1 Person Assist Distance (Feet) 20 Able to Maintain Weight Bearing Status Yes During Gait Assistive Devices Assistive Device Gait Belt,Front Wheeled Walker Orthotic/Prosthetic Devices or Brace: No Gait Deviations General Gait Pattern Decreased Stride Length, Decreased Feet Clearance Factors Limiting Gait Function Factors Limiting Gait Function Decreased Activity Tolerance, Decreased Strength,Difficulty Following Directions,Limited Range of Motion,Pain,Poor Balance,Poor Safety Awareness Stair Climbing Assessment Evaluation Level of Assist On Stairs Contact Guard Assistance, Minimal Assistance Devices Stair Climbing Assistive Devices Front Wheel Walker Technique/Endurance Stair Climbing Direction Ascend and Descend Stair Climbing Technique Step to Step Number of Steps Climbed 1 Stair Climbing Set # Repetitions (reps) 2 M5 PT-IP Objective Assessments Start: 01/01/24 13:31 Freq: NEEDED Status: Active Protocol: Document 01/01/24 10:20 AB (Rec: 01/01/24 13:48 AB [id number]) Orientation Orientation/Cognition Level of Alertness Alert Orientation Name,Place,Situation Language Function Ability Hard of Hearing Safety Awareness Decreased Safety Awareness Memory Description Short Term Impaired Gross Range of Motion Lower Extremity ROM Assessment Within Functional Limits Strength Lower Extremity Strength Assessment Right Impaired Hip 4-/5 Knee 3+/5 Sensation Assessment Sensation Gross Sensation Right LE Impaired,Left LE Impaired Sensation Description Numbness,Tingling Comments Sensation Comments pt stated that he has diabetic neuropathy on B feet Muscle Tone Muscle Tone WNL Yes M6 PT-IP Treatment Start: 01/01/24 13:31 Freq: NEEDED Status: Active Protocol: Document 01/01/24 14:15 AB (Rec: 01/01/24 16:56 AB [id number]) Physical Therapy Treatment Education Education Provided Precautions,Safety M7 PT-IP Assessment and Plan Start: 01/01/24 13:31 Freq: NEEDED Status: Active Protocol: Document 01/01/24 14:15 AB (Rec: 01/01/24 16:56 AB [id number]) PT Summary Assessment and Plan Potential Rehabilitation Potential Good Summary Impairments Pain,ROM,Strength,Balance, Coordination,Sensation,Tone, Cognition,Bed Mobility, Transfers,Gait,Activity Tolerance Progress Towards Goals Progressing Toward Goals Assessment Summary caregiver training conducted and spouse was able to assist pt safely. pt may go home when medically stable. Goals Bed Mobility Goal Standby Assistance Transfer Goal Standby Assistance,Front Wheeled Walker Gait Goal Standby Assistance,Front Wheel Walker Gait Distance 200 Other Goals up/down 1 step using FWW SBA Days to Meet Goals 5 Frequency of Treatment Frequency Of Treatment Twice a Day Treatment Plan Physical Therapy Treatment Plan Bed Mobility Training,Transfer Training,Gait Training, Therapeutic Exercise,Balance Retraining,Post Op Education, Discharge Planning,Hot or Cold Pack,Neuromuscular Re-ed, Coordination Retraining,Manual Therapy Precautions Lumbar Precautions Log Roll,No Twisting,Limit Bending,Lifting Restriction of 10 lbs,Gait Belt above Incisional Area Recommendations To Nursing Amount of Assist Needed 1 Person Assist Discharge Recommendations PT Discharge Recommendations Home with 07/05 Assist Available,Home Health Transportation Needs at Discharge Private Vehicle
[2024-01-01] MEDS: TAMSULOSIN 0.4 MG CAPSULE PO (20:56)
[2024-01-01] MEDS: SENNOSIDES 8.6 MG TABLET 17.2 MG PO (20:56)
[2024-01-01] MEDS: SODIUM CHLORIDE 0.9% FLUSH 10 ML IV (21:22)
--- NOTE | 2024-01-02 01:20 | PC.NURSE ---
Patient is alert and oriented. Breath sounds CTA with RA sat of 92%. HRR with elevated BP of 175/76 but had Metoprolol held this a.m. Denied nausea. BT present but denies having passed flatus as yet. Is voiding using urinal with urine being clear, light yellow; denied dysuria. Is assisted on request to reposition in bed. Dressing to back is CDI. Did complain of 9/10 back pain radiating down legs and stated oxycodone given earlier had not helped so medicated with IV Dilaudid and ice pack applied to back and repositioned onto right side and has been mostly sleeping since that time. Has diminished sensation in bilateral LE but denies tingling or numbness at time of assessment; other CMS was intact. Bilateral SCD's applied to legs. Fall risk score is high and bed alarm is activated.
[2024-01-02] MEDS: ACETAMINOPHEN 325 MG TABLET 650 MG PO (02:23)
[2024-01-02] MEDS: OXYCODONE IR 5 MG TABLET PO ×3 (02:23→12:11)
[2024-01-02 02:26] VITALS: BP 103/64; PULSE 77; RESP 16; TEMP 37.4; O2SAT 96
[2024-01-02] MEDS: SODIUM CHLORIDE 0.9% FLUSH 10 ML IV ×2 (06:29→09:08)
[2024-01-02] MEDS: HYDROMORPHONE 0.5 MG INJ IV (06:29)
[2024-01-02 08:00] VITALS: BP 147/63; PULSE 86; RESP 18; TEMP 36.3; O2SAT 94
[2024-01-02] MEDS: ASCORBIC ACID 500 MG TABLET 1000 MG PO (09:07)
[2024-01-02] MEDS: METFORMIN XR 500 MG TABLET PO (09:07)
[2024-01-02] MEDS: DOCUSATE 100 MG CAPSULE PO (09:07)
[2024-01-02] MEDS: FISH OIL 1,000 MG CAPSULE 1000 MG PO (09:07)
[2024-01-02] MEDS: lisinopriL 5 MG TABLET PO (09:07)
[2024-01-02] MEDS: CHOLECALCIFEROL (VITAMIN D3) 1,000 UNIT TABLET 1000 UNIT PO (09:07)
[2024-01-02] MEDS: LACTOBACILLUS ACIDOPHILUS TABLET 1 EACH PO (09:07)
[2024-01-02] MEDS: DULOXETINE 30 MG CAPSULE 60 MG PO (09:07)
[2024-01-02] MEDS: allopurinoL 100 MG TABLET 300 MG PO (09:07)
[2024-01-02] MEDS: GABAPENTIN 400 MG CAPSULE 1200 MG PO (09:07)
[2024-01-02] MEDS: FINASTERIDE 5 MG TABLET PO (09:08)
[2024-01-02] MEDS: METOPROLOL ER 50 MG TABLET 100 MG PO (09:08)
--- NOTE | 2024-01-02 09:09 | PM.DS.1 ---
History of Present Illness History of Present Illness Date Patient Seen: 01/02/24 Time Patient Seen: 09:09 Chief complaint: leg pain, weakness, poor balance Narrative: Operative Date/Time/Diagnoses Date of procedure: 12/31/23 Time of procedure: 13:00 Pre-op diagnosis: 1. L3-4, L4-5 spinal stenosis with neurogenic claudication 2. L3-4, L4-5 foraminal stenosis with radiculopathy Post-op diagnosis: same Procedure & Clinicians Procedure: 1. L4-5 Postero-lateral and posterior interbody fusion 2. L4-5 interbody cage placement. 3. L4-5 decompressive laminectomy with bilateral facetecomies 4. L4-5 Posterior non-segmental instrumentation 5. L3-4 left hemilaminectomy 6. Devine of bone marrow from iliac crest 7. Utilization of microsurgical technique and operating microscope Same procedure as scheduled: Yes Indications: Patient has been having chronic back pain and worsening lumbar radiculopathy and symptoms of neurogenic claudication. Patient had multiple falls over the last 2 months due to his progressive leg weakness poor balance causing difficulty walking standing. Patient failed multiple conservative management with worsening pain weakness and numbness in his lower extremity. Patient has been having difficulty performing activity of daily living. After discussing risks benefits of treatment options, patient elected proceed with surgery on urgent basis due to his progressive neurological deterioration. Surgeon: Dylan Nuñez Early Childhood Worker: Teresa Story Click Yes if Unassisted: No Anesthesia Type: General Operative Notes Closure Type: primary Prosthetic devices, grafts, tissues, transplants, or devices: Globus revolve screws, Rise cage Estimated Blood Loss (mL): 50 Blood products transfused: none Discharge Providers Provider Date of admission: 12/31/23 10:48 Discharge Date: 01/02/24 Primary care physician: Nahid MENDOZA Provider Consults: 12/31/23 17:18 Consult to Occupational Therapy Evaluate & Treat Comment: Physician Instructions: Evaluate and treat Consult to Physical Therapy Evaluate & Treat Comment: Physician Instructions: Evaluate and Treat Discharge provider: Teresa Story PA-C Summary Hospital Course Discharge Diagnosis: L3-4, L4-5 spinal stenosis with neurogenic claudication, L3-4, L4-5 foraminal stenosis with radiculopathy ; s/p left L3-4 hemilaminectomy and L4-5 lumbar fusion Hospital Course: Mr Vizcaino's hospital course was significant for difficulty w/ pain control which slowed progress w/ PT. On the morning of POD# 2, he was complaining of shooting pain down his LLE that was alleviated by IV hydromorphone. He had anticipated low back pain that was controlled with oral medication. He was eating and voiding without difficulty. He was evaluated by PT during his stay and they felt he was appropriate for discharge home with his spouse. Exam Vital Signs (past 8 hours): - 01/02/24 02:26 Temperature 99.3 F Pulse Rate 77 Respiratory Rate 16 Blood Pressure 103/64 Pulse Oximetry 96 Oxygen Flow Rate 0 Oxygen Delivery Method Room Air Oxygen Flow Rate 0 Narrative Exam Narrative: 5/5 strength in hip flexors, quadriceps, hamstrings, PF bilaterally. DF 5/5 on right, 4/5 on left. EHL 3/5 on right, absent on left. Sensation to light touch intact throughout BLE. Calves soft, compressible, nontender. Dressing placed intraoperatively is CDI. 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 Surgical History Hx of bilateral cataract extraction (~2019) Hx of hernia repair (~1988) History of appendectomy Family History Father Diabetes mellitus Cancer Mother Cancer Sister Cancer Sister Cancer Family/Other Diabetes mellitus Social History marital status: household members: spouse Smoking Status: Never smoker alcohol intake: former Discharge Assessment & Plan Assessment and Plan Assessment: L3-4, L4-5 spinal stenosis with neurogenic claudication, L3-4, L4-5 foraminal stenosis with radiculopathy ; s/p left L3-4 hemilaminectomy and L4-5 lumbar fusion Plan of Treatment: Discharge home, multimodal pain control, f/u in office in 2 weeks as scheduled. Will send steroid taper in the event he has recurrent LLE pain; pt is only to take this medication if he has shooting pain into his leg. Discharge Plan Discharge Plan Patient Disposition: Home Discharge orders & Medications Prescriptions: New oxycodone 5 mg Tablet 5 mg PO Q4-6H PRN (Reason: Pain, Moderate (4-6)) Qty: 60 0RF methylprednisolone [Medrol (Matt)] 4 mg tablets,dose pack See Rx Instructions .ROUTE .COMPLEX Qty: 21 0RF Rx Instructions: ONLY start taking if you experience shooting pain in your left leg. Take until finished and check you blood sugar at least 4 times/day. orally per package directions docusate sodium 100 mg Capsule 100 mg PO BID PRN (Reason: constipation) Qty: 60 1RF acetaminophen 325 mg Tablet 650 mg PO Q6H PRN (Reason: Fever/Mild Pain (1-3)) Qty: 240 0RF Continued tamsulosin [Flomax] 0.4 MG capsule,extended release 24hr 0.4 mg PO HS Qty: 0 omega 8-[id number]-fish oil [Fish Oil] 1,000 mg (120 mg-180 mg) Capsule 1 cap PO DAILY Qty: 0 calcium carbonate 500 mg calcium (1,250 mg) Tablet,Chewable 1,000 mg PO DAILY PRN (Reason: GI Upset) Qty: 0 cholecalciferol (vitamin D3) [Vitamin D3] 50 mcg (2,000 unit) Capsule 1,000 unit PO QDAY Qty: 0 metformin 500 mg tablet extended release 24 hr 500 mg PO BID metoprolol succinate 100 mg Tablet Extended Release 24 Hr 100 mg PO DAILY Advil PM 200-38 mg Tablet 1 - 2 cap PO BEDTIME PRN (Reason: Sleep) finasteride 5 mg tablet 5 mg PO DAILY allopurinol 300 mg tablet 300 mg PO DAILY lactobacillus combination no.8 1 tab PO DAILY lisinopril 5 mg tablet 5 mg PO DAILY ascorbic acid (vitamin C) 1,000 mg tablet 1 gram PO BID duloxetine [Cymbalta] 60 mg capsule,delayed release(DR/EC) 60 mg PO DAILY Qty: 90 2RF trazodone 100 mg tablet 100 mg PO BEDTIME PRN (Reason: insomnia) Qty: 90 2RF gabapentin 800 mg tablet 1,200 mg PO TID Qty: 270 2RF Follow up/Referrals: Dylan Nuñez MD [Physician] - 01/18/24 1:00 pm (Follow up w/ Usman Deutsch PA-C, at [facility] office in [place].) ProviderNahid [Primary Care Provider] - Diet/Activity/Treatments Diet: Diet as Tolerated Activity: No deep bending or twisting at the waist. No lifting more than 10 pounds. Cold/Heat Therapy: Heating pad to low back as needed for pain. Skin/Wound/Dressing Care Report to your healthcare provider any signs of infection, such as:: chills, fever, night sweats, unusual drainage and unusual redness Dressing: May shower. Keep dressing as dry as possible. If dressing becomes wet or dirty, may remove and replace with clean, dry gauze. No bathing or otherwise soaking incisions. Do not apply any creams, lotions, or ointments to incisions. Visit Report/Discharge Packet Instructions: DI for Transforaminal Lumbar Interbody Fusion, DI for Prescription Opioid Use Stand Alone Forms: Patient Portal/API, Stroke Signs & Symptoms, Surgery Discharge Discharge Data Primary Care Provider: ProviderNahid Quality VTE Deep Vein Thrombosis/Pulmonary Embolism Present on Admission: No
[2024-01-02 10:00] VITALS: PULSE 78
--- NOTE | 2024-01-02 10:02 | PT.IPTN ---
Current Diagnoses Spinal stenosis, lumbar region with neurogenic claudication (12/31/23) Arthrodesis status (12/31/23) Surgery Performed Operation Date: 12/31/23 12:45 Actual Procedures p L4-5 TLIF L3-4 Hemilaminectomy - Dylan Nuñez MD Physical Therapy Treatment Note M2 PT-IP Current Condition Start: 01/01/24 13:31 Freq: NEEDED Status: Active Protocol: Document 01/01/24 10:20 AB (Rec: 01/01/24 13:48 AB [id number]) Physical Therapy Current Condition Current Condition Evaluation Date 01/01/24 Treatment Diagnosis s/p L4-5 TLIF; difficulty in walking Onset Date 12/31/23 M3 PT-IP Subjective Start: 01/01/24 13:31 Freq: NEEDED Status: Active Protocol: Document 01/02/24 10:33 TS (Rec: 01/02/24 10:51 TS [id number]) Subjective Physical Therapy Visit Type Type Treatment Note Visit Start Time 10:02 Visit Stop Time 10:30 Notes BP: Supine 153/68, sitting 129 /60, standing 91/51, 171/69 supine. Number of SILVER PLATER Visits 1 Physical Therapy Visit Comments Patient Comments Pt found resting in bed, is agreeable to PT. Therapy Pain Assessment Pain When Pain Assessed At Rest Pain Present Pain Present Pain Reported M4 PT-IP Mobility and Gait Start: 01/01/24 13:31 Freq: NEEDED Status: Active Protocol: Document 01/02/24 10:33 TS (Rec: 01/02/24 10:51 TS [id number]) PT-Bed Mobility Assessment Rolling Type of Rolling Log Rolling Level of Assist Standby Assistance Supine to Sit Supine to Sit Standby Assistance Sit to Supine Sit to Supine Standby Assistance Scooting Scooting to Edge of Bed Standby Assistance PT-Transfer Assessment Sit to and From Stand Sit to and from Stand Standby Assistance,Use of Upper Extremities Equipment Transfer Assistive Device Gait Belt,Front Wheeled Walker Orthotic/Prosthetic Devices or Brace: No Comments Mobility Comments BP in supine 153/68. Logroll to R side SBA, pt demonstrates good carryover of sequencing. Supine to sit SBA with BUE support, pt demonstrates good sequencing. BP in sitting 129/ 60. STS from bed SBA with FWW. BP in standing 91/51, pt reports some lightheadedness. Pt agreed to try to ambulate. Pt ambulated in room ~15' SBA with FWW, reports some ligthheadedness. Sit to supine into bed SBA. BP in supine 171/69. Pt was left in bed, RN notified. Gait Assessment Gait Gait Assistance Required: Standby Assistance Distance (Feet) 15 Able to Maintain Weight Bearing Status Yes During Gait Assistive Devices Assistive Device Gait Belt,Front Wheeled Walker Orthotic/Prosthetic Devices or Brace: No Gait Deviations General Gait Pattern Decreased Stride Length, Decreased Feet Clearance Factors Limiting Gait Function Factors Limiting Gait Function Decreased Activity Tolerance, Decreased Strength,Difficulty Following Directions,Limited Range of Motion,Pain,Poor Balance PT-Balance Assessment Sitting Balance and Reactions Static Sitting Balance Ability Good Dynamic Sitting Balance Ability Good Standing Balance and Reactions Static Standing Balance Ability Fair Dynamic Standing Balance Ability Fair Device Used FWW M5 PT-IP Objective Assessments Start: 01/01/24 13:31 Freq: NEEDED Status: Active Protocol: Document 01/01/24 10:20 AB (Rec: 01/01/24 13:48 AB [id number]) Orientation Orientation/Cognition Level of Alertness Alert Orientation Name,Place,Situation Language Function Ability Hard of Hearing Safety Awareness Decreased Safety Awareness Memory Description Short Term Impaired Gross Range of Motion Lower Extremity ROM Assessment Within Functional Limits Strength Lower Extremity Strength Assessment Right Impaired Hip 4-/5 Knee 3+/5 Sensation Assessment Sensation Gross Sensation Right LE Impaired,Left LE Impaired Sensation Description Numbness,Tingling Comments Sensation Comments pt stated that he has diabetic neuropathy on B feet Muscle Tone Muscle Tone WNL Yes M6 PT-IP Treatment Start: 01/01/24 13:31 Freq: NEEDED Status: Active Protocol: Document 01/02/24 10:33 TS (Rec: 01/02/24 10:51 [id number]) Physical Therapy Treatment Education Education Provided Precautions,Safety M7 PT-IP Assessment and Plan Start: 01/01/24 13:31 Freq: NEEDED Status: Active Protocol: Document 01/02/24 10:33 TS (Rec: 01/02/24 10:51 TS [id number]) PT Summary Assessment and Plan Potential Rehabilitation Potential Good Summary Impairments Pain,ROM,Strength,Balance, Coordination,Sensation,Tone, Cognition,Bed Mobility, Transfers,Gait,Activity Tolerance Progress Towards Goals Progressing Toward Goals Assessment Summary Robbin continues to do well with his mobility but does remain orthostatic(see vitals) . He continues to be SBA for all bed mobility and STS with FWW. He ambulated a short distance in room ~15' SBA with FWW, due to some lightheadedness pt did not ambulate further. He recalled 3/3 spinal precautions and demonstrates good awareness of his precautions during mobility. PT is recommending pt return home with 24/7 assist and HHPT. Goals Bed Mobility Goal Standby Assistance Transfer Goal Standby Assistance,Front Wheeled Walker Gait Goal Standby Assistance,Front Wheel Walker Gait Distance 200 Other Goals up/down 1 step using FWW SBA Days to Meet Goals 5 Frequency of Treatment Frequency Of Treatment Twice a Day Treatment Plan Physical Therapy Treatment Plan Bed Mobility Training,Transfer Training,Gait Training, Therapeutic Exercise,Balance Retraining,Post Op Education, Discharge Planning,Hot or Cold Pack,Neuromuscular Re-ed, Coordination Retraining,Manual Therapy Precautions Lumbar Precautions Log Roll,No Twisting,Limit Bending,Lifting Restriction of 10 lbs,Gait Belt above Incisional Area Recommendations To Nursing Amount of Assist Needed 1 Person Assist Discharge Recommendations PT Discharge Recommendations Home with 24/7 Assist Available,Home Health Transportation Needs at Discharge Private Vehicle
--- NOTE | 2024-01-02 13:10 | PT.IPTN ---
Current Diagnoses Spinal stenosis, lumbar region with neurogenic claudication (12/31/23) Arthrodesis status (12/31/23) Surgery Performed Operation Date: 12/31/23 12:45 Actual Procedures p L4-5 TLIF L3-4 Hemilaminectomy - Dylan Nuñez MD Physical Therapy Treatment Note M2 PT-IP Current Condition Start: 01/01/24 13:31 Freq: NEEDED Status: Active Protocol: Document 01/01/24 10:20 AB (Rec: 01/01/24 13:48 AB [id number]) Physical Therapy Current Condition Current Condition Evaluation Date 01/01/24 Treatment Diagnosis s/p L4-5 TLIF; difficulty in walking Onset Date 12/31/23 M3 PT-IP Subjective Start: 01/01/24 13:31 Freq: NEEDED Status: Active Protocol: Document 01/02/24 13:39 TS (Rec: 01/02/24 13:52 TS [id number]) Subjective Physical Therapy Visit Type Type Treatment Note Visit Start Time 13:10 Visit Stop Time 13:39 Notes BP: Supine 146/68, Sitting 143 /66, Standing 94/54. Number of MUTUEL MACHINE OPERATOR Visits 2 Physical Therapy Visit Comments Patient Comments Pt found resting in bed, RN and spouse in room discussing plan for home. Pt is agreeable to PT. Therapy Pain Assessment Pain When Pain Assessed During Mobility Pain Present Pain Present Pain Reported M4 PT-IP Mobility and Gait Start: 01/01/24 13:31 Freq: NEEDED Status: Active Protocol: Document 01/02/24 13:39 TS (Rec: 01/02/24 13:52 TS [id number]) PT-Bed Mobility Assessment Rolling Type of Rolling Log Rolling Level of Assist Standby Assistance Supine to Sit Supine to Sit Standby Assistance Sit to Supine Sit to Supine Standby Assistance Scooting Scooting to Edge of Bed Standby Assistance PT-Transfer Assessment Sit to and From Stand Sit to and from Stand Minimal Assistance,Use of Upper Extremities Equipment Transfer Assistive Device Gait Belt,Front Wheeled Walker Orthotic/Prosthetic Devices or Brace: No Comments Mobility Comments BP in supine 146/68. Logroll to R side SBA with use of handrails, pt demonstrates good carryover of sequencing. Supine to sit SBA with use of bed rail and cues for pushing through elbow to upright trunk . Pt sat EOB, BP 143/66. Spouse was instructed and performed donning of gait belt. STS from spouse Nathan with FWW, pt had some buckling of knees. BP in standing 94/ 54, pt reports some lightheadedness. Pt ambulated in room ~60'SBA with FWW, has some dizziness. Pt retruned to bed SBA with cues for logroll . Pt was left in bed, spouse in room, RN notified. Gait Assessment Gait Gait Assistance Required: Standby Assistance Distance (Feet) 60 Able to Maintain Weight Bearing Status Yes During Gait Assistive Devices Assistive Device Gait Belt,Front Wheeled Walker Orthotic/Prosthetic Devices or Brace: No Gait Deviations General Gait Pattern Decreased Stride Length, Decreased Feet Clearance Factors Limiting Gait Function Factors Limiting Gait Function Decreased Activity Tolerance, Decreased Strength,Difficulty Following Directions,Limited Range of Motion,Pain,Poor Balance PT-Balance Assessment Sitting Balance and Reactions Static Sitting Balance Ability Good Dynamic Sitting Balance Ability Good Standing Balance and Reactions Static Standing Balance Ability Fair Dynamic Standing Balance Ability Fair Device Used FWW M5 PT-IP Objective Assessments Start: 01/01/24 13:31 Freq: NEEDED Status: Active Protocol: Document 01/01/24 10:20 AB (Rec: 01/01/24 13:48 AB [id number]) Orientation Orientation/Cognition Level of Alertness Alert Orientation Name,Place,Situation Language Function Ability Hard of Hearing Safety Awareness Decreased Safety Awareness Memory Description Short Term Impaired Gross Range of Motion Lower Extremity ROM Assessment Within Functional Limits Strength Lower Extremity Strength Assessment Right Impaired Hip 4-/5 Knee 3+/5 Sensation Assessment Sensation Gross Sensation Right LE Impaired,Left LE Impaired Sensation Description Numbness,Tingling Comments Sensation Comments pt stated that he has diabetic neuropathy on B feet Muscle Tone Muscle Tone WNL Yes M6 PT-IP Treatment Start: 01/01/24 13:31 Freq: NEEDED Status: Active Protocol: Document 01/02/24 13:39 TS (Rec: 01/02/24 13:52 TS [id number]) Physical Therapy Treatment Education Education Provided Precautions,Safety M7 PT-IP Assessment and Plan Start: 01/01/24 13:31 Freq: NEEDED Status: Active Protocol: Document 01/02/24 13:39 TS (Rec: 01/02/24 13:52 TS [id number]) PT Summary Assessment and Plan Potential Rehabilitation Potential Good Summary Impairments Pain,ROM,Strength,Balance, Coordination,Sensation,Tone, Cognition,Bed Mobility, Transfers,Gait,Activity Tolerance Progress Towards Goals Progressing Toward Goals Assessment Summary Robbin continues to make progress with his mobility. He continues to be SBA for all bed mobility with use of bed rails, does require some minimal cueing. He required Nathan to stand due to some buckling and weak knees. He progressed his gait to ~60'SBA with FWW. He continues to have some dizziness standing and with gait. PT is recommending pt return home with 24/7 assist at this time and HHPT. Goals Bed Mobility Goal Standby Assistance Transfer Goal Standby Assistance,Front Wheeled Walker Gait Goal Standby Assistance,Front Wheel Walker Gait Distance 200 Other Goals up/down 1 step using FWW SBA Days to Meet Goals 5 Frequency of Treatment Frequency Of Treatment Twice a Day Treatment Plan Physical Therapy Treatment Plan Bed Mobility Training,Transfer Training,Gait Training, Therapeutic Exercise,Balance Retraining,Post Op Education, Discharge Planning,Hot or Cold Pack,Neuromuscular Re-ed, Coordination Retraining,Manual Therapy Precautions Lumbar Precautions Log Roll,No Twisting,Limit Bending,Lifting Restriction of 10 lbs,Gait Belt above Incisional Area Recommendations To Nursing Amount of Assist Needed 1 Person Assist Discharge Recommendations PT Discharge Recommendations Home with 24/7 Assist Available,Home Health Transportation Needs at Discharge Private Vehicle
--- NOTE | 2024-01-02 13:28 | CM.DPNOTE ---
DC Note Discharge home w/family to assist, close outpatient follow up recommended. No needs identified from this CM team. MAYO
--- NOTE | 2024-01-02 14:33 | PC.NURSE ---
Day shift: Paperwork signed and all questions answered. Pt has all personal belongings. scripts sent to Pt's pharmacy electronic. Left unit at approx 1430 via WC. Taken to car by this automobile and property underwriter. Caregiver/family is driving him home. Caregiver was in room for PT instruction and discharge instructions. Dressing was changed as it was peeling up and the wounds were exposed. Wounds w/ no s/s of infection. Bryanna intact and no drainage. Caregiver instructed on how to reinforce dressing if needed and they have supplies to do that.
== END 2024-01-02 14:46 | disposition home or self-care (01) | DRG 455 ==
PROVIDERS: Admitting Provider Orthopaedic Surgery Orthopaedic Surgery of the Spine; Referring Provider Orthopaedic Surgery Orthopaedic Surgery of the Spine; Visit Provider Orthopaedic Surgery Orthopaedic Surgery of the Spine
PROC: 0SG00AJ Fusion of Lumbar Vertebral Joint with Interbody Fusion Device, Posterior Approach, Anterior Column, Open Approach (ICD-10-PCS; principal; 2023-12-31 12:45)
DX: M48.062 Spinal stenosis, lumbar region with neurogenic claudication (principal); M54.16 Radiculopathy, lumbar region; M46.06 Spinal enthesopathy, lumbar region; M53.86 Other specified dorsopathies, lumbar region; G89.18 Other acute postprocedural pain; I10 Essential (primary) hypertension; E78.5 Hyperlipidemia, unspecified; M10.9 Gout, unspecified; G47.00 Insomnia, unspecified; Z79.84 Long term (current) use of oral hypoglycemic drugs
CPT/HCPCS: 72100; 76000; 82962; 97162; 97166; 97530; 97535; A9270; C1713; C1831; C9290; J0171; J0330; J0690; J1100; J1170; J2405; J2704; J3010; J3410